=== PATIENT | male | born 1960 | race Caucasian/White ===

== ENCOUNTER 2019-05-28 12:00 | Outpatient (CLI) | payer OTHER, SELFPAY ==
--- NOTE | 2019-05-28 | ECHO_ITS ---
Patient Info Name: Elton Garcia Age: 59 years : 1960 Gender: Male Ht: 70 in Wt: 165 lbs BSA: 1.93 m2 HR: 81 bpm BP: 123 / 86 mmHg Technical Quality: Poor Exam Date: 05/28/2019 12:49 PM Exam Location: [facility] Pulmonary Patient Status: Outpatient Admit Date: 05/28/2019 Staff Ordering Physician: JoseCorazon APRN Eyeglass Lens Cutter: Ct [place] RDCS Attending Provider: BabatundeCorazon APRN Exam Type: CA echo doppler color flow Study Info Indications I27.2 - Other secondary pulmonary hypertension Complete two-dimensional, color flow and Doppler transthoracic echocardiogram is performed. Reason for Poor Study: poor echocardiographic windows Summary 1. Left ventricular chamber dimension is normal. 2. Left ventricular systolic function is normal, estimated at 60-65%. 3. The left ventricular diastolic function is grade II diastolic dysfunction. 4. Tissue doppler is not performed. 5. There is mild aortic valve sclerosis. 6. RVSP is 35 mmHg which suggests normal pulmonary pressure. 7. The aortic root size at the sinus of Valsalva is borderline dilated at 4.0 cm. 8. Dilated inferior vena cava with >50% collapse upon inspiration consistent with elevated right atrial pressure, 10 mmHg. Left Ventricle Tissue doppler is not performed. Left ventricular chamber dimension is normal. Left ventricular systolic function is normal, estimated at 60-65%. The left ventricular diastolic function is grade II diastolic dysfunction. Right Ventricle Right ventricular chamber dimension is normal. Right ventricular systolic function is normal. Left Atria Left atrial chamber dimension is normal. Right Atria Right atrial chamber dimension is normal. Aortic Valve The aortic valve is trileaflet. There is mild aortic valve sclerosis. There is no aortic valve stenosis. There is no aortic valve regurgitation. Pulmonic Valve There is no pulmonic regurgitation. Mitral Valve There is no mitral valve stenosis. There is no mitral valve regurgitation. Tricuspid Valve RVSP is 35 mmHg which suggests normal pulmonary pressure. There is no tricuspid valve regurgitation. Pericardium/Pleural There is no pericardial effusion. Inferior Vena Cava Dilated inferior vena cava with >50% collapse upon inspiration consistent with elevated right atrial pressure, 10 mmHg. Aorta The aortic root size at the sinus of Valsalva is borderline dilated at 4.0 cm. Tricuspid Valve Name Value Normal Estimated PAP/RSVP RA Pressure 10 mmHg <=5 Report Signatures
== END 2019-05-28 12:01 | disposition home or self-care (01) ==
PROVIDERS: Visit Provider Nurse Practitioner Gerontology
DX: I27.20 Pulmonary hypertension, unspecified (principal)
CPT/HCPCS: 93306

== ENCOUNTER 2024-07-07 08:56 | Inpatient (IN) | payer OTHER, SELFPAY ==
[2024-07-07] VITALS (21 sets, daily range): BP systolic 100–146; BP diastolic 62–85; PULSE 87–130; RESP 13–21; TEMP 36.6–39.4; O2SAT 86–100; BMI 28.8
--- NOTE | ~2024-07-07 | CT_ITS ---
EXAMINATION: CTA chest PE abdomen pel DATE: 07/07/2024 10:19 INDICATION: Hypoxia, tachycardia and cough TECHNIQUE: Computed tomography (CT) pulmonary angiogram of the chest was performed with 100 mL Omnipa que-350 intravenous contrast. Additional 3D reconstructions utilizing coronal maximum intensity proje ction (MIP) were performed. CT of the abdomen and pelvis was performed with intravenous contrast util izing the same contrast bolus following a short delay. Automated exposure control and iterative recon struction technique were employed. The dose-length product was 1739.53 mGy-cm. COMPARISON: 04/25/2024 FINDINGS: Chest: No pulmonary embolism. Sensitivity decreased in some of the smaller subsegmental pulmonary arteries d ue to scattered respiratory motion most prominent at the lung bases. Moderate emphysema. There is a r egion of focal consolidation and surrounding septal line thickening in the posterior left lower lobe which is new since the prior study consistent with pneumonia. No pleural effusion. Heart size is norm al. Atherosclerotic coronary artery calcific location. No pericardial effusion. Thoracic aorta is nor mal in caliber with no dissection. No pathologically enlarged thoracic lymphadenopathy. Moderate-siz ed sliding-type hiatal hernia. Mild bilateral gynecomastia. Moderate thoracic spondylosis with multip le old mild compression fractures. There are also old healed bilateral rib fractures. Abdomen/pelvis: There are few hepatic cysts the largest measuring 2.0 cm. Small calcified gallstone at the dependent fundus of the otherwise normal gallbladder. Spleen, pancreas, bilateral adrenal glands and kidneys ar e normal. The appendix is not visualizedand may be surgically absent. No pericecal inflammatory stran ding to suggest acute appendicitis.. No abnormal bowel wall thickening or obstruction. Again seen is mild diffuse bladder wall thickening which could be related chronic outlet obstruction from the mildl y enlarged prostate which measures 4.2 x 3.5 cm. No free intraperitoneal gas or fluid. No pathologica lly enlarged abdominal or pelvic lymphadenopathy. Severe lower lumbar spondylosis. IMPRESSION: 1. No evident pulmonary embolism. Sensitivity decreased in some of the smaller subsegmental pulmonary arteries due to motion artifact. 2. Moderate emphysema with left lower lobe pneumonia. 3. Moderate-sized sliding-type hiatal hernia. 4. Unchanged mild diffuse bladder wall thickening which may relate to chronic outlet obstruction. Reviewed, dictated and finalized at location A. IMPRESSION: 1. No evident pulmonary embolism. Sensitivity decreased in some of the smaller subsegmental pulmonary arteries due to motion artifact. 2. Moderate emphysema with left lower lobe pneumonia. 3. Moderate-sized sliding-type hiatal hernia. 4. Unchanged mild diffuse bladder wall thickening which may relate to chronic o utlet obstruction.
[2024-07-07] MEDS: SODIUM CHLORIDE 0.9% IV 1,000 ML 999 ML IV CONT ×2 (09:20→12:01)
[2024-07-07 09:22] LABS: Basophils Absolute Auto 0.1 K/mm3 (0.0-0.1); Basophils Percent Auto 0.6 % (0.2-1.2); Eosinophils Absolute Auto 0.1 K/mm3 (0-0.3); Eosinophils Percent Auto 0.6 % (0-4.4); Hematocrit 40.6 % (42.0-52.0); Hemoglobin 14.1 g/dL (14.0-18.0); Immature Granulocyte Absolute 0.04 K/mm3 (0.00-0.031); Immature Granulocyte Percent A 0.3 % (0-0.5); Lymphocytes Absolute Auto 0.96 K/mm3 (0.9-3.2); Lymphocytes Percent Auto 7.8 % (18.3-44.2); Mean Corpuscular HGB Conc 34.7 g/dl (32-36); Mean Corpuscular Hemoglobin 30.1 pg (26-34); Mean Corpuscular Volume 86.6 fl (80-100); Mean Platelet Volume 8.9 fl (7.4-10.4); Monocytes Absolute Auto 0.9 K/mm3 (0.1-0.6); Monocytes Percent Auto 7.6 % (2.6-8.5); Neutrophils Absolute Auto 10.3 K/mm3 (1.3-6.7); Neutrophils Percent Auto 83.1 % (45.5-73.1); Platelet Count Result 245 k/mm3 (150-375); Red Blood Count 4.69 M/mm3 (4.6-6.20); Red Cell Distribution Width 14.1 % (11.5-14.5); White Blood Count 12.3 K/mm3 (4.5-10.0)
[2024-07-07 09:29] LABS: Alanine Aminotransferase 28 U/L (6-50); Albumin Level 4.5 g/dL (3.5-5.1); Alkaline Phosphatase 117 U/L (38-126); Anion Gap 10 mmol/L (4-12); Aspartate Amino Transferase 33 U/L (17-59); Bilirubin,Total 1.2 mg/dL (0.2-1.3); Blood Urea Nitrogen 10 mg/dL (9-20); Calcium 9.2 mg/dL (8.4-10.2); Carbon Dioxide 26 mmol/L (22-30); Chloride 100 mmol/L (98-107); Estimated CRCL calculation 68 ml/min; Estimated Glomerular Filt Rate > 60; Glucose 111 mg/dL (65-110); Lipase 108 U/L (23-300); Potassium 4.9 mmol/L (3.4-5.0); Sodium 136 mmol/L (137-145)
[2024-07-07 09:31] LABS: Lactic Acid Reflex 1.7 mmol/L (0.7-2.0)
--- OUTSIDE RECORDS SUMMARY | 2024-07-07 09:38 | XMS_ITS | Clinical Summary ---
Author Organization [facility] Address [address] [place] [address] Phone Care Team Providers Care Eeler Name Role Phone Conner Andrews APRN Primary Care Provider [phone] Allergies Active Allergy Reactions Criticality Noted Date Comments Other Runny Nose 08/22/2016 SEASONAL ALLERGIES Medications famotidine (PEPCID) 20 MG Tablet nightly. Active traZODone (DESYREL) 50 MG Tablet Take 50 mg by mouth nightly. Active Naproxen-Esomep razole (VIMOVO) 500-20 MG Tablet Delayed Response Active thiamine (VITAMIN B1) 100 MG Tablet Take 100 mg by mouth daily. Active folic acid (FOLVITE) 1 MG Tablet Take 1 mg by mouth daily. Active bisacodyl EC (DULCOLAX) 5 MG Tablet Delayed Response Use as directed by the office for Colonoscopy prep. 6 Tab 0 6 Active Meloxicam 15 MG Tablet Take 15 mg by mouth daily. Active baclofen (LIORESAL) 10 MG Tablet Take 10 mg by mouth nightly. Active DULoxetine (CYMBALTA) [address] Particles Take 60 mg by mouth as needed. Active RaNITidine HCl (ZANTAC PO) Take 150 mg by mouth daily. Active Cetirizine HCl 10 MG Capsule Take 1 Tab by mouth daily. Active [place]-3 Fatty Acids (OMEGA-3 FISH OIL) 1000 MG Capsule Take by mouth. Acti ve oxymetazoline (AFRIN NASAL SPRAY) 0.05 % SolutionIndicat ions:Nasal Congestion,USES ONCE OR TWICE A DAY TO RIGHT NOSTRIL 2 Sprays by Nasal route as needed. Indications: Stuffy Nose, USES ONCE OR TWICE A DAY TO RIGHT NOSTRIL Active Active Problems No known active problems Family History Medical History Relation Name Comments Heart Disease Brother Diabetes Father Heart Attack Father Heart Surgery Father 7 vessel bypas s Hypertension Father Diabetes Mother Heart Disease Mother Rheumatoid Arthritis Mother Relation Name Status Comments Brother Father Mother Social History Tobacco Use Types Packs/Day Years Used Date Smoking Tobacco: Every Day Cigarettes 1 42 Smokeless Tobacco: Never Tobacco Cessation:Ready to Q uit: No; Counseling Given: Yes Alcohol Use Standard Drinks/Week Comments Yes 6 (1 standard drink = 0.6 oz pure alcohol) socially - binge drinker 12 pack a week Sex and Gender Information Value Date Recorded Sex Assigned at Not on file Legal Sex Male 11:31 PM CDT Gender Identity Not on file Sexual Orientation Not on file 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 Not on file Not on file Not on file Last Filed Vital Signs Vital Sign Reading Time Taken Comments Blood Pressure 131/97 10/28/2016 11:12 AM CDT Pulse 79 10/28/2016 11:12 AM CDT Temperature 36 C (96.8 F) 10/28/2016 11:12 AM CDT Respiratory Rate 12 10/28/2016 11:12 AM CDT Oxygen Saturation 100% 10/28/2016 11:12 AM CDT Inhaled Oxygen Concentration - - Weight 77.1 kg (170 lb) 10/28/2016 9:03 AM CDT Height 177.8 cm (5' 10 ) 10/28/2016 9:03 AM CDT Body Mass Index 24.39 10/28/2016 9:03 AM CDT Plan of Treatment Health Maintenance Due Date Last Done Comments Hepatitis C Virus (HCV) Screening 1960 TdaP Immunization 1960 Cologuard 2011 Immunochemical Fecal Occult Blood 2011 Pneumococcal Immunization (5 0+ years) (1 of 1 - PCV) 2011 Zoster Immunization (1 of 2) 2011 Colonoscopy 02/26/2017 08/26/2016, 12/27/2015, 12/21/2014 Colorectal Cancer Screening 02/26/2017 Influenza Immunization (#1) 2023 SARS-COV-2 Immunization (2023-25 season) 2023 Respiratory Syncytial Virus (RSV) Immunization (Adult) (1 - 1-dose 75+ series) 02/12/2036 08/26/2016, 12/27/2015, 12/21/2014 Hepatitis B Immunization Aged Out No longer eligible based on patient's age to complete this topic Meningococcal Immunization (ACWY) Aged Out No longer eligible b ased on patient's age to complete this topic Rotavirus Immunization Aged Out No lo nger eligible based on patient's age to complete this topic Procedures Procedure Name Priority Date/Time Associated Diagnosis Comments COLONOSCOPY Routine 12/21/2014 from Last 3 Months or Most Recently Relevant to Health Maintenance Results * HM COLONOSCOPY (12/21/2014) Job Cordero MD PROCEDURE/MINOR SURGICAL ORDER CHINTAN Final Result from Last 3 Months or Most Recently Relevant to Health Maintenance Insurance [address] [place] [address] MEDICAID [facility] Care Teams Eeler Relationship Specialty Start Date End Date Conner Andrews APRN [address] [place] [address] PCP - General Advanced Practice Nurse 08/14/16
--- OUTSIDE RECORDS SUMMARY | 2024-07-07 09:38 | XMS_ITS | Referral Summary ---
Author Organization [facility] Address [address] [place] [address] Care Team Providers Care Mri Technologist Name Role Phone Melinda Hyde NP Primary Care Provide r Rodriguez Eid MD Unavailable [phone] Allergies No known active allergies Medications budesonide-form oteroL (SYMBICORT) 160-4.5 mcg/actuation inhaler Inhale 2 puffs 2 (two) times a day Rinse mouth with water after use. Do not swallow. Active folic acid (FOLVITE) 1 mg tablet Take 1 tablet (1 mg total) by mouth daily Active DULoxetine DR (CYMBALTA) 60 mg capsule Take 1 capsule (60 mg total) by mouth daily Active magnesium oxide (MAG-OX) 400 mg (241.3 mg elemental magnesium) tabletIndicatio ns:hypomagnesem ia Take 1 tablet (400 mg total) by mouth daily Active gabapentin (NEURONTIN) 300 mg capsule Take 1 capsule (300 mg total) by mouth 3 (three) times a day Active omeprazole (PriLOSEC) 20 mg capsule Take 1 capsule (20 mg total) by mouth daily Active multivitamin with minerals tablet Take 1 tablet by mouth daily Active meclizine (ANTIVERT) 12.5 mg tablet Take 1 tablet (12.5 mg total) by mouth 3 (three) times a day as needed for dizziness Active amLODIPine (NORVASC) 10 mg tablet Take 1 tablet (10 mg total) by mouth daily 30 tablet 11 3 Active Active Problems Problem Noted Date Diagnosed Date Impacted cerumen of both ears 10/15/2022 Assessment & Plan (10/15/2022 12:37 AM CDT): Carbamide peroxide Alcohol withdrawal seizure with complication 01/2023 Assessment & Plan (10/15/2022 12:36 AM CDT): Telemetry Neurologic checks [facility] protocol Neurology consultation Patient refers last drink having occurred proximally 3-4 days ago, and excessive alcohol consumption--- degree of which has great variability as referred Liver cyst 10/30/2021 Benign prostatic hyperplasia without lower urinary tract symptoms 10/30/2021 Other emphysema 10/30/2021 Hiatal hernia 10/30/2021 Cervical spondylosis 10/30/2021 Moderate malnutrition 10/23/2021 Wernicke encephalopathy 10/23/2021 Dizziness 10/21/2021 Weight loss, unintentional 10/21/[address] scan, esophagus 10/21/2021 Hepatic steatosis 10/21/2021 Hyponatremia 10/21/2021 Alcohol abuse 10/21/2021 Assessment & Plan (10/15/2022 12:37 AM CDT): CIWA protocol Thrombocytopenia 10/21/2021 Tobacco dependence 10/21/2021 Social History Tobacco Use Types Packs/Day Years Used Date Smoking Tobacco: Every Day Cigarettes Social Connection and Isolation Panel [NHANES] A nswer Date Recorded In a typical week, how many times do you talk on the phone with family, friends, or neighbors? Twice a week 10/15/2022 How often do you get together with friends or re latives? Once a week 10/15/2022 How often do you attend adventism or buddhism serv ices? Never 10/15/2022 Do you belong to any clubs o r organizations such as adventism groups, unions, fraternal or athletic groups, or school groups? No 10/15/2022 How often do you attend meet ings of the clubs or organizations you belong to? Never 10/15/2022 Are you , , di vorced, , never , or living with a partner? Never 10/15/2022 AUDIT-C Answer Date Recorded Q1: How often do you have a drink containing alcohol? 4 or more times a week 10/22/2021 Q2: How many drinks containi ng alcohol do you have on a typical day when you are drinking? 3 or 4 Frequency of Binge Drinking Not on file 10/05 Overall Financial Resource Strain (CARDIA) Answe r Date Recorded How hard is it for you to pa y for the very basics like food, housing, medical care, and heating? Not very hard 10/15/2022 Hunger Vital Sign Answer Date Recorded Within the past 12 months, y ou worried that your food would run out before you got the money to buy more. Never true 10/16/19 23 Within the past 12 months, t he food you bought just didn't last and you didn't have money to get more. Never true 10/15/2022 PRAPARE - Transportation Answer Date Re corded In the past 12 months, has l ack of transportation kept you from medical appointments or from getting medications? No 10/05 In the past 12 months, has l ack of transportation kept you from meetings, work, or from getting things needed for daily living? No 10/15/2022 Housing Stability Vital Sign Answer Doyle e Recorded In the last 12 months, was t here a time when you were not able to pay the mortgage or rent on time? No 10/15/2022 In the last 12 months, how many places have you lived? 1 10/15/2022 In the last 12 months, was t here a time when you did not have a steady place to sleep or slept in a fpc (including now)? 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 Gender Identity Not on file Sexual Orientation Not on file Last Filed Vital Signs Vital Sign Reading Time Taken Comments Blood Pressure 138/80 10/19/2022 4:00 PM CDT Pulse 92 10/19/2022 4:00 PM CDT Temperature 36.4 C (97.5 F) 10/19/2022 4:00 PM CDT Respiratory Rate 20 10/19/2022 4:00 PM CDT Oxygen Saturation 93% 10/19/2022 4:00 PM CDT Inhaled Oxygen Concentration - - Weight 59.2 kg (130 lb 9.6 oz) 10/16/2022 5:00 A M CDT Height 177.8 cm (5' 10 ) 10/14/2022 11:50 PM CDT Body Mass Index 18.74 10/14/2022 11:50 PM CDT Plan of Treatment Not on file Insurance [address] [place] [phone] [facility] [address] [place] [phone] [facility] Advance Directives For more information, please contact: [phone] Documents on File Type Date Recorded Patient Pattern Developer Expl anation ADVANCE DIRECTIVE 01/01/2016 12:00 AM BILLY Ry OF D[employer]EL CRANE OPERATOR FINANCIAL/MEDICAL * Full Code (Latest Code Status on File) Date Activated Date Inactivated Comments 10/15/2022 12:54 AM 10/19/2022 9:35 PM * Full Code Date Activated Date Inactivated Comments 10/21/2021 10:52 PM 10/23/2021 10:55 PM Care Teams Mri Technologist Relationship Specialty Start Date End Date Melinda Hyde NP PCP - General 08/06/20 Rodriguez Eid MD [address] [address] Referring Physician Emergency Medicine 10/23/21
--- OUTSIDE RECORDS SUMMARY | 2024-07-07 09:38 | XMS_ITS | Clinical Summary ---
Author Organization [facility] Address [address] [place] [address] Care Team Providers Care Civil Rights Attorney Name Role Phone Melinda Hyde [employer]-ELECTRICAL [employer]OLS ENGINEER Primary Care Provider Source Comments [facility],non-owned Affiliates and Associated Physician Practices is amultiple site organization consisting of ambulatory clinics and hospital sitesin [place], [place], [place] and [place]. This disclosure is being madepursuant to the Care Everywhere program and may not contain all information available regarding this patient. Last updated 17.[facility] [place] Allergies Active Allergy Reactions Criticality Noted Date Comments Nicotine Anaphylaxis,Itching, Othe r High 06/09/2017 Patches only. Able to take pills and use gum Medications * Be aware that medications may not be up to date on this document. Alwaysverify current medications with the patient. Medication Sig Dispensed Refills Start Date End Date Status omeprazole (PRILOSEC) 40 MG capsule Take 40 mg by mouth BID. 08/30/2016 Active folic acid (FOLVITE) 1 MG tablet Take 1 mg by mouth DAILY. 01/31/2016 Active baclofen (LIORESAL) 10 MG tablet Take 10 mg by mouth BID. 01/31/2016 Active Thiamine HCl 100 MG Take 100 mg by mouth DAILY. 01/31/2016 Active DULoxetine (CYMBALTA) 60 MG capsule Take 60 mg by mouth DAILY. 06/24/2017 Active cetirizine (ZYRTEC ALLERGY) 10 MG gel capsule Take 10 mg by mouth DAILY. 07/07/2017 Active albuterol HFA (RELION VENTOLIN) 108 (90 BASE) MCG/ACT inhaler Inhale 2 puffs by mouth every 6 hours as needed Active SYMBICORT 160-4.5 MCG/ACT inhaler 2 times daily 05/14/2019 Active gabapentin (NEURONTIN) 300 MG capsule 12/21/2019 Active fluticasone propionate (FLONASE) 50 MCG/ACT nasal spray 11/22/2019 Active traZODone (DESYREL) 100 MG tablet 12/22/2019 Active omeprazole (PRILOSEC) 20 MG capsule 11/23/2019 Active loratadine (CLARITIN) 10 MG tablet 11/23/2019 Active traMADol (ULTRAM) 50 MG tablet 04/27/2020 Active Active Problems Problem Noted Date Diagnosed Date Alcoholism 01/26/2020 Asthma 01/26/2020 Tobacco use 01/26/2020 Acromioclavicular joint sepa ration, type 3, left, subsequent encounter 06/02/2018 Rotator cuff tear arthropathy, left 06/02/2018 Multiple benign nevi of uppe r and lower extremities, and trunk 12/31/2017 History of basal cell carcinoma (BCC) of skin [place] 12/31/2017 Dermatofibroma of thigh, left 12/31/2017 Scar conditions and fibrosis of skin 05/06/2017 Lentigines 05/06/2017 Neoplasm of uncertain behavior of skin 8 Hypertrophy of nasal turbinates 11/19/2016 Deviated nasal septum 11/19/2016 Localized swelling, mass and lump, left upper li mb 02/01/2016 Forearm mass, left 02/01/2016 Epidermal cyst 01/31/2016 Resolved Problems Problem Noted Date Diagnosed Date Resolved Date Other melanin hyperpigmentation 05/06/2017 12/31/2017 Family History Medical History Relation Name Comments Arthritis - Rheumatoid Brother 1 Depression Brother 2 Broken Bones Brother 3 Glaucoma Brother 4 Heart Disease Brother 5 Hypertension Brother 6 High Cholesterol Brother 7 Osteoporosis Brother 8 Phlebitis/Blood Clot Brother 9 Arthritis - Rheumatoid Father Asthma Father Broken Bones Father CVA Father Depression Father Diabetes Father Glaucoma Father Heart Disease Father High Cholesterol Father Hypertension Father Kidney Disease Father Liver Disease Father Osteoporosis Father Peptic Ulcer Disease Father Phlebitis/Blood Clot Father Seizures Father Broken Bones Maternal Aunt Arthritis - Rheumatoid Mother Asthma Mother Broken Bones Mother CVA Mother Depression Mother Diabetes Mother Glaucoma Mother Hearing Loss Mother Heart Disease Mother High Cholesterol Mother Hypertension Mother Kidney Disease Mother Liver Disease Mother Osteoporosis Mother Peptic Ulcer Disease Mother Phlebitis/Blood Clot Mother Seizures Mother Arthritis - Rheumatoid Sister 1 Broken Bones Sister 2 Depression Sister 3 Glaucoma Sister 4 Osteoporosis Sister 5 Relation Name Status Comments Brother 1 Brother 2 Brother 3 Brother 4 Brother 5 Brother 6 Brother 7 Brother 8 Brother 9 Father Maternal Aunt Mother Sister 1 Sister 2 Sister 3 Sister 4 Sister 5 Social History Tobacco Use Types Packs/Day Years Used Date Smoking Tobacco: Every Day Cigarettes Smokeless Tobacco: Current Alcohol Use Standard Drinks/Week Comments Yes 4 (1 standard drink = 0.6 oz pur e alcohol) 96 oz beer daily AUDIT-C Answer Date Recorded Q1: How often do you have a drink containing alcohol? 4 or more times a week 06/19/2021 Q2: How many drinks containi ng alcohol do you have on a typical day when you are drinking? 3 or 4 Q3: How often do you have si x or more drinks on one occasion? Daily or almost daily 06/19/2021 Sex and Gender Information Value Date Recorded Sex Assigned at Not on file Gender Identity Not on file Sexual Orientation Not on file Last Filed Vital Signs Vital Sign Reading Time Taken Comments Blood Pressure 135/91 06/19/2021 6:40 PM CDT Pulse 88 06/19/2021 6:40 PM CDT Temperature 36.3 C (97.4 F) 06/19/2021 4:17 PM CDT Respiratory Rate 16 06/19/2021 6:40 PM CDT Oxygen Saturation 99% 06/19/2021 6:40 PM CDT Inhaled Oxygen Concentration - - Weight 74.8 kg (165 lb) 06/19/2021 4:26 PM CDT Height 177.8 cm (5' 10 ) 06/19/2021 4:26 PM CDT Body Mass Index 23.68 06/19/2021 4:26 PM CDT Plan of Treatment Health Maintenance Due Date Last Done Comments COLOGUARD (AGES 45-75) - COL ON CA SCREENING 1960 COLON MONITORING 1960 COLONOSCOPY - COLON CA SCREENING 1961 CT COLONOGRAPHY - COLON CA SCREENING 1960 Colorectal Cancer Screening 1960 FIT - COLON CA SCREENING 1960 FLEX SIG - COLON CA SCREENING 1960 LIPID TESTING 1960 DTAP/TDAP/TD VACCINES (1 - Tdap) 02/12/1980 PNEUMOCOCCAL VACCINE 50+ (1 of 2 - PCV) 02/12/1980 PNEUMOCOCCAL VACCINE (1 of 2 - PCV) 02/12/1980 ZOSTER VACCINE (1 of 2) 2011 Respiratory Syncytial Virus (RSV) Vaccine Pt: or over 60 yrs (1 - Risk 60-74 years 1-dose series) 2021 COVID-19 VACCINE (4 - 2023-2 5 season) 2023 02/27/2021, 07/05/2020, 06/14/2020 INFLUENZA VACCINE (#1) 2023 , 02/03/2020 DEPRESSION SCREENING 04/07/2024 HEPATITIS C SCREENING Completed 06/19/2021 HIV SCREENING Completed 06/19/2021 HEPATITIS B VACCINE Aged Out No longe r eligible based on patient's age to complete this topic HIB VACCINE Aged Out No longer eligi ble based on patient's age to complete this topic HPV VACCINE Aged Out No longer eligi ble based on patient's age to complete this topic MENINGOCOCCAL (Group B) VACCINE SHARED DECISION-MAKING Aged Out No longer eligible based on patient's age to complete this topic MENINGOCOCCAL GROUPS A/C/Y/W VACCINE Aged Out No longer eligible b ased on patient's age to complete this topic Procedures Procedure Name Priority Date/Time Associated Diagnosis Comments HIV-1 HIV-2 ANTIBODY + HIV P24 AG PANEL STAT 06/19/2021 6:19 PM CDT HEPATITIS C AB SCREEN RFLX NAAT QUANT STAT 06/19/2021 6:18 PM CDT from Last 3 Months or Most Recently Relevant to Health Maintenance Results * HIV-1 HIV-2 ANTIBODY + HIV P24 AG PANEL (06/19/2021 6:19 PM CDT) HIV Antigen/Antibod y 1 & 2 Non-reacti ve Non-react ericka 06/19/2021 7:46 PM CDT [facility] Comment:No Laboratory eviden ce of HIV infection. Blood BLOOD SPECIMEN / Unknown Venipuncture / Unknown 06/19/2021 6:19 PM CDT 06/19/2021 6:28 PM CDT Silas Medina MD LAB - CHEMISTRY [place] ZAPIEN Performing Organization Address [facility]/ZIP Co de Phone Number [address] [address], [facility] [phone] * HEPATITIS C AB SCREEN RFLX NAAT QUANT (06/19/2021 6:18 PM CDT) Hepatitis C Antibody Non-react ericka Non-reac tive 06/19/2021 7:47 PM CDT [facility] Comment:Hepatitis C Antibody screen indicates no serologic evidence of past or current infection with Hepatitis C Virus. Patients with unexplained liver disease who are immunocompromised or suspected of having acute Hepatitis C infection may benefit from Nucleic Acid Test (CRISTA) for Hepatitis C Viral RNA to confirm Hepatitis C status. Blood BLOOD SPECIMEN / Unknown Venipuncture / Unknown 06/19/2021 6:18 PM CDT 06/19/2021 6:28 PM CDT Silas Medina MD LAB - CHEMISTRY [place]HA ZAPIEN Performing Organization Address [facility] Co de Phone Number [address] [address], [facility] [phone] from Last 3 Months or Most Recently Relevant to Health Maintenance Care Teams Civil Rights Attorney Relationship Specialty Start Date End Date Melinda Hyde, [employer] ASSEMBLER-ELECTRICAL CONTROLS ENGINEER [address] [place] [id number] PCP - General 01/26/20
--- OUTSIDE RECORDS SUMMARY | 2024-07-07 09:38 | XMS_ITS | Clinical Summary ---
Author Organization [facility] Address [address] [place] [address] Care Team Providers Care Frame Feeder Name Role Phone Craig Thrasher MD Unavailable Rodriguez Eid MD Primary Care Provider [phone] Allergies Active Allergy Reactions Criticality Noted Date Comments Nicotine Hives,Nausea Only 06/09/2017 Patches only. Able to take pills and use gum Medications fluticasone propionate 50 MCG/ACT nasal spray 1 spray by Each Nostril route daily. 8 Active vitamin B-1 100 MG tablet Take 1 tablet by mouth daily. 8 Active baclofen 10 MG tablet Take 1 tablet (10 mg total) by mouth 2 (two) times daily. 8 Active duloxetine 60 MG capsule Take 1 capsule (60 mg total) by mouth daily. 8 Active folic acid 1 MG tablet Take 1 tablet (1 mg total) by mouth daily. 8 Active ranitidine 300 MG tablet Take 1 tablet (300 mg total) by mouth 2 (two) times daily. 8 Active sucralfate 1 G tablet Take 1 tablet (1 g total) by mouth 4 (four) times daily. 8 Active trazodone 50 MG tablet Take 2 tablets (100 mg total) by mouth nightly as needed for Sleep. 8 Active TiZANidine HCl 2 MG Cap Take 0.5 tablets by mouth 2 (two) times daily. NO DOSE GIVEN 03-03-18. 8 Active loratadine 10 MG tablet Take 1 tablet (10 mg total) by mouth daily. 8 Active Multiple Vitamins-Minerals (ONE DAILY MULTIVITAMIN MEN) Tab Take 1 tablet by mouth daily. 8 Active albuterol sulfate HFA (VENTOLIN HFA) 108 (90 Base) MCG/ACT inhaler Inhale 2 puffs into the lungs every 6 (six) hours as needed for Wheezing. 8 Active acetaminophen-cod eine 300-30 MG tablet Take 1 tablet by mouth every 8 (eight) hours as needed for Pain. 9 Active ibuprofen 800 MG tablet Take 1 tablet (800 mg total) by mouth every 8 (eight) hours as needed for Pain. 9 Active meclizine 12.5 MG tablet Take 12.5 mg by mouth. Active gabapentin 300 MG capsule Take 1 capsule (300 mg total) by mouth 3 (three) times daily. 90 capsule 1 Active Active Problems Problem Noted Date Diagnosed Date Rotator cuff tear arthropathy, left 06/02/2018 Acromioclavicular joint sepa ration, type 3, left, subsequent encounter 06/02/2018 Cervical radiculopathy 06/11/2017 Tobacco use [facility]) Precordial chest pain Resolved Problems Problem Noted Date Diagnosed Date Resolved Date Chest pain 05/12/2018 Immunizations Name Administration Dates Next Due PFIZER COVID-19 (ORIGINAL FO RMULATION, PURPLE CAP) mRNA, LNP-S, PF, 30 MCG/0.3 ML DOSE 07/05/2020,06/14/2020 Family History Medical History Relation Comments Colon Cancer Brother 1 Heart Disease Brother 1 MS Brother 1 automobile accident Brother 2 Colon Cancer Father Diabetes Father Heart Disease Father Kidney Disease Father MS Father Prostate Cancer Father cva Father Arthritis Mother Diabetes Mother Heart Disease Mother Kidney Disease Mother MS Mother cva Mother MS Sister Relation Status Comments Brother 1 Alive Brother 2 (Age 43) Father (Age 89) Mother (Age 79) Sister Alive Social History Tobacco Use Types Packs/Day Years Used Date Smoking Tobacco: Every Day Cigarettes 1 40 Smokeless Tobacco: Former Chew Quit: 1989 Tobacco Cessation:Ready to Q uit: No Alcohol Use Standard Drinks/Week Comments Yes 20 (1 standard drink = 0.6 oz pu re alcohol) 12+ beers weekly or more Sex and Gender Information Value Date Recorded Sex Assigned at Not on file Legal Sex Male 7:51 PM CDT Gender Identity Not on file Sexual Orientation Not on file Occupation Industry Job Start Date Job End Date Not on file Not on file Not on file Not on file Last Filed Vital Signs Vital Sign Reading Time Taken Comments Blood Pressure 158/98 09/12/2022 2:42 PM CDT Pulse 89 09/12/2022 2:42 PM CDT Temperature 36.7 C (98.1 F) 09/12/2022 2:42 PM CDT Respiratory Rate 18 09/12/2022 2:42 PM CDT Oxygen Saturation 100% 09/12/2022 2:42 PM CDT Inhaled Oxygen Concentration - - Weight 60.2 kg (132 lb 11.5 oz) 09/12/2022 2:42 PM CDT Height 177.8 cm (5' 10 ) 09/12/2022 2:42 PM CDT Body Mass Index 19.04 09/12/2022 2:42 PM CDT Plan of Treatment Health Maintenance Due Date Last Done Comments Annual Physical 02/12/1964 Zoster Vaccines (1 of 2) 2011 Pneumococcal Vaccine: Pediatrics (0 to 5 Years) and At-Risk Patients (6 to 64 Years) (2 of 2 - PCV) 12/29/2016 12/30/2015 COVID-19 Vaccine (3 - 2023-2 5 season) 2023 07/05/2020, 06/14/2020 Influenza Adult (#1) 2024 02/24/2017, 12/30/2015 PHQ-2 (Physician [place]) 04/07/2024 DTaP, Tdap and Td Vaccines ( 2 - Td or Tdap) 02/24/2027 02/24/2017, 06/21/2013 Colorectal Cancer Screening Colonoscopy (10 Years) 11/26/2028 11/26/2018 RSV Immunization or 60+ Years (1 - 1-dose 75+ series) 02/12/2036 Hepatitis C Completed 06/19/2021 Meningococcal B Vaccine Aged Out No l onger eligible based on patient's age to complete this topic Meningococcal Vaccine Aged Out No daisy rubina eligible based on patient's age to complete this topic RSV Immunizations Under 20 Months Aged Out No longer eligible b ased on patient's age to complete this topic Procedures Procedure Name Priority Date/Time Associated Diagnosis Comments COLONOSCOPY Routine 11/26/2018 8:27 AM CDT from Last 3 Months or Most Recently Relevant to Health Maintenance Insurance [employer] Care Teams Frame Feeder Relationship Specialty Start Date End Date Rodriguez Eid MD [address] [place] [address] PCP - General FAMILY PRACTICE 04/27/20 Craig Thrasher MD [facility] [address] [place] [address] [place] [employer] INTERVENTIONAL CARDIOLOGY 02/09/18
--- OUTSIDE RECORDS SUMMARY | 2024-07-07 09:38 | XMS_ITS | Clinical Summary ---
Author Organization [facility] Address [address] [place] [address] Care Team Providers Care Bulk Plant Supervisor Name Role Phone Melinda Hyde NP Primary Care Provide r Rodriguez Eid MD Unavailable [phone] Allergies No known active allergies Medications [...] AM CDT): Telemetry Neurologic checks Fall precaution [facility] protocol Neurology consultation Patient refers [...] CIWA protocol Thrombocytopenia 10/21/2021 Tobacco dependence 10/21/2021 Medical History Medical History Date Comments Seizure due to alcohol withdrawal (HCC) GERD (gastroesophageal reflux disease) Neuropathy Vertigo Social History Tobacco Use Types Packs/Day Years [...] week 10/15/2022 How often do you attend oriental orthodox or sikh serv ices? Never 10/15/2022 Do you belong to any clubs o r organizations such as oriental orthodox groups, unions, fraternal or athletic groups, or [...] place to sleep or slept in a retirement (including now)? No 10/15/2022 Personal Safety Answer Date Recorded Getting School Help Needed Not on file 10/21 Sex and Gender Information Value Date Recorded Sex Assigned at Not on file Legal Sex Male 1:58 AM [employer] Gender Identity Not on file Sexual Orientation Not on file Obstetrics History Last Filed Vital Signs Vital Sign Reading [...] 10/14/2022 11:50 PM CDT Plan of Treatment Health Maintenance Due Date Last Done Comments Colon Cancer Screening-Colonoscopy 1961 Depression Screening 1961 Hepatitis C Screening 1961 Prostate Cancer Screening-PSA 1961 Hepatitis B Screening 1979 Regular Well Visit/Exam 18-64 1979 Zoster Vaccine (1 of 2) 2011 Pneumococcal vaccine <65 (2 of 2 - PCV) 12/29/2016 12/30/2015 Covid-19 Vaccine (4 - 2023-2 5 season) 2023 02/27/2021, 07/05/2020, 06/14/2020 Influenza Vaccine (Season Ended) 2024 02/28/2021, 02/03/2020, 01/19/2019, Additional history exists DTaP/Tdap/Td Vaccine (2 - Td or Tdap) 02/24/2027 02/24/2017, 06/21/[address] [place] [address] [facility] Advance Directives For more information, please contact: [phone] Documents on File Type Date Recorded Patient Certified Personal Trainer Expl anation ADVANCE DIRECTIVE 01/01/2016 12:00 AM [employer] * Full Code (Latest Code Status on File) Date Activated Date Inactivated Comments 10/15/2022 12:54 AM 10/19/2022 9:35 PM * Full Code Date Activated Date Inactivated Comments 10/21/2021 10:52 PM 10/23/2021 10:55 PM Care Teams Bulk Plant Supervisor Relationship Specialty Start Date End Date Melinda Hyde NP PCP - General 08/06/20 Rodriguez Eid MD [address] [address] Referring Physician Emergency Medicine 10/23/21
--- NOTE | 2024-07-07 09:48 | ED_ITS ---
HPI - General Adult General Chief complaint: Nausea/Vomiting/Diarrhea <Tori Gross PA-C - Last Filed: 07/07/24 13:41> Stated complaint: fever, chills, N/V <Tori Gross PA-C - Last Filed: 07/07/24 13:41> Time Seen by Provider: 07/07/24 08:58 <CRAIG Cisneros Last Filed: 07/07/24 13:41> Source: patient, RN notes reviewed and old records reviewed <CRAIG Cisneros Last Filed: 07/07/24 13:41> Mode of arrival: EMS <CRAIG Cisneros Last Filed: 07/07/24 13:41> Limitations: dementia <CRAIG Cisneros Last Filed: 07/07/24 13:41> History of Present Illness HPI narrative: Patient is a 64-year-old male, with past medical history of Wernicke's encephalopathy, dementia, COPD, who presents the ED via EMS with report of URI sx's/N/V. Patient is a resident of [facility]. Reports he has not been feeling well over the past couple of days. Reports cough, congestion, nausea, vomiting, diarrhea. Develop fevers until today. Was sent to the ED for further evaluation. Was given Tylenol and Zofran by facility prior to transport. Per EMS, there has been COVID positive residents at [facility]. Patient denies significant shortness of breath. Denies pain or swelling in legs. <Tori Gross PA-C - Last Filed: 07/07/24 13:41> Related Data Home medications: Home Medications ?Medication ?Instructions ?Recorded ?Confirmed ?Last Taken ?Type acetaminophen 325 mg capsule 325 mg PO Q6H PRN pain 07/07/24 07/07/24 Unknown History albuterol sulfate 90 mcg/actuation 2 inh inhalation Q4-6H PRN 07/07/24 07/07/24 Unknown History breath activated powder inhaler shortness of breath amlodipine 10 mg tablet 10 mg PO DAILY 07/07/24 07/07/24 Unknown History budesonide-formoterol HFA 160 2 inh inhalation Q12H 07/07/24 07/07/24 Unknown History mcg-4.5 mcg/actuation aerosol inhaler (Breyna) buspirone 10 mg tablet 10 mg PO BID 07/07/24 07/07/24 Unknown History cetirizine 10 mg tablet (All Day 10 mg PO DAILY 07/07/24 07/07/24 Unknown History Allergy (cetirizine)) famotidine 20 mg tablet (Acid 20 mg PO BID 07/07/24 07/07/24 Unknown History Thermostat Machine Tender (famotidine)) ferrous sulfate 325 mg (65 mg 325 mg PO DAILY 07/07/24 07/07/24 Unknown History iron) tablet (Feosol) fluticasone propionate 50 1 spray intranasal DAILY 07/07/24 07/07/24 Unknown History mcg/actuation nasal spray,suspension (Allergy Relief (fluticasone)) folic acid 1 mg tablet 1 mg PO DAILY 07/07/24 07/07/24 Unknown History gabapentin 300 mg capsule 300 mg PO TID 07/07/24 07/07/24 Unknown History magnesium oxide 400 mg PO DAILY 07/07/24 07/07/24 Unknown History meclizine 25 mg tablet 25 mg PO Q8H PRN dizziness 07/07/24 07/07/24 Unknown History memantine 10 mg tablet (Namenda) 10 mg PO BID 07/07/24 07/07/24 Unknown History multivitamin,ll-ybas-Sm-FA-min 1 tablet PO DAILY 07/07/24 07/07/24 Unknown History nicotine 14 mg/24 hr daily 1 patch transdermal DAILY PRN 07/07/24 07/07/24 Unknown History transdermal patch withdrawal symptoms omeprazole 20 mg capsule,delayed 20 mg PO DAILY 07/07/24 07/07/24 Unknown History release propylene glycol 1 %-glycerin 0.3 1 drp EACH EYE BID PRN dry eye(s) 07/07/24 07/07/24 Unknown History % eye drops (Lubricant (propylene glycol-glycerin)) <Tori Gross PA-C - Last Filed: 07/07/24 13:41> Allergies/adverse reactions: Allergies Allergy/AdvReac Type Severity Reaction Status Date / Time No Known Allergies Allergy Verified 07/07/24 09:06 <Tori Gross PA-C - Last Filed: 07/07/24 13:41> Review of Systems 2 Review of Systems: All systems reviewed & are unremarkable except as noted in HPI. <Tori Gross PA-C - Last Filed: 07/07/24 13:41> All systems reviewed & are unremarkable except as noted in HPI and below < Tori Gross PA-C - Last Filed: 07/07/24 13:41> PMFSH Past Medical History Medical History: Medical History (Updated 07/07/24 @ 14:19 by Taisha Garsia APRN) Anxiety GERD (gastroesophageal reflux disease) COPD (chronic obstructive pulmonary disease) <CRAIG Cisneros Last Filed: 07/07/24 13:41> Surgical History Surgical History: Surgical History (Updated 07/07/24 @ 14:19 by Taisha Garsia APRN) History of appendectomy <Tori Gross PA-C - Last Filed: 07/07/24 13:41> Social History Social History: Social History Smoking packs per day: 0.5 Smoking cigarettes per day: 10.0 Years smoked: 42 Smoking pack-years: 21.00 Smoking status: Current some day smoker Tobacco type: cigarettes Do You Feel Safe in your Home?: Yes Lack of Transportation: No Lack of Food: Never True Current Housing: I Have Housing Concerned About Future Housing: No Difficulty Paying Gas/Electric Bills: No Difficulty Paying for Meds: No Currently Unemployed: No Education: High School Diploma/GED Difficulty w/ Childcare or Family Care: No Spiritual care concerns: No <CRAIG Cisneros Last Filed: 07/07/24 13:41> Exam 2 Narrative: GENERAL: Appears older than stated age, well-nourished, non-toxic, in no acute distress. HEAD: Normocephalic, atraumatic. RESPIRATORY: Airway patent, respirations nonlabored. Clear to auscultation bilaterally, no rales, rhonchi, wheezing. CARDIOVASCULAR: Regular rate and rhythm without murmurs, rubs, or gallops. ABDOMINAL: Soft, nontender, nondistended. Normoactive BS. MUSCULOSKELETAL: Moves all extremities. No gross deformities. No peripheral edema. No calf tenderness. SKIN: Warm, dry, normal color. NEURO: Alert, answers all questions, discussing topics that do not fit with conversation. Speech clear. Cranial nerves II-XII grossly intact. No ataxic movements. No appreciable focal deficits. PSYCHIATRIC: Appropriate mood and affect. Normal interaction. <Tori Gross PA-C - Last Filed: 07/07/24 13:41> Course APPLICATION PROJECT LEADER/PA Physician Supervision For this patient encounter, I reviewed the APPLICATION PROJECT LEADER or PA documentation, treatment plan, and medical decision making; and I had [id number] time with this patient. <Yaniv Mcclellan MD - Last Filed: 07/07/24 18:25> Vital Signs Vital signs: Vital Signs Temperature 102.9 F H 07/07/24 09:02 Pulse Rate 121 H 07/07/24 09:02 Respiratory Rate 19 07/07/24 09:02 Blood Pressure 112/76 07/07/24 09:02 Pulse Oximetry 86 L 07/07/24 09:02 Oxygen Delivery Room Air 07/07/24 09:02 Temperature 98 F 07/07/24 13:45 Pulse Rate 87 07/07/24 16:44 Respiratory Rate 16 07/07/24 14:06 Blood Pressure 100/62 07/07/24 13:45 Pulse Oximetry 96 07/07/24 14:06 Oxygen Delivery Nasal Cannula 07/07/24 14:06 Oxygen Flow Rate 2 07/07/24 14:06 <Tori Gross PA-C - Last Filed: 07/07/24 13:41> Vital Signs Temperature 102.9 F H 07/07/24 09:02 Pulse Rate 121 H 07/07/24 09:02 Respiratory Rate 19 07/07/24 09:02 Blood Pressure 112/76 07/07/24 09:02 Pulse Oximetry 86 L 07/07/24 09:02 Oxygen Delivery Room Air 07/07/24 09:02 Temperature 98 F 07/07/24 13:45 Pulse Rate 87 07/07/24 16:44 Respiratory Rate 16 07/07/24 14:06 Blood Pressure 100/62 07/07/24 13:45 Pulse Oximetry 96 07/07/24 14:06 Oxygen Delivery Nasal Cannula 07/07/24 14:06 Oxygen Flow Rate 2 07/07/24 14:06 <Yaniv Mcclellan MD - Last Filed: 07/07/24 18:25> Medical Decision Making MDM Narrative Medical decision making narrative: Patient presented to ED from local [facility] facility with report of fevers, nausea, vomiting, diarrhea, URI symptoms. Patient tachycardic, febrile, hypoxic upon arrival. Sepsis workup was initiated. Patient placed on 2 L nasal cannula. No previous oxygen requirement. CBC with white blood cell count of 12.3. Neutrophil predominance. CMP is unremarkable. Stable electrolytes and kidney function. Lactic acid within normal range at 1.7. Normal LFTs and lipase. UA with 3+ leuks, negative nitrate, does not appear to have refluxed? Viral swabs are negative, though patient has had close exposure at his facility to COVID-19. EKG with sinus tachycardia, no concerning ST changes. Trop undetectable. CTA of chest with abdomen/pelvis was obtained and no evidence of PE. Does show evidence of left lower lobe pneumonia, emphysematous changes. No significant wheezing heard upon my initial exam. Patient meeting sepsis criteria based on initial vital signs and pneumonia. Blood cultures obtained. Rocephin and azithromycin started for pneumonia. Patient will be admitted for further evaluation. Discussed case with Taisha Garsia NP hospitalist, accepted patient for admission. Patient in agreement with plan and admission. <Tori Gross PA-C - Last Filed: 07/07/24 13:41> Medical Records Medical records reviewed: Yes I reviewed the external patient's medical records. <Tori Gross PA-C - Last Filed: 07/07/24 13:41> Vital Signs Vital Signs: Vital Signs Temperature 102.9 F H 07/07/24 09:02 Pulse Rate 121 H 07/07/24 09:02 Respiratory Rate 19 07/07/24 09:02 Blood Pressure 112/76 07/07/24 09:02 Pulse Oximetry 86 L 07/07/24 09:02 Oxygen Delivery Room Air 07/07/24 09:02 Temperature 98 F 07/07/24 13:45 Pulse Rate 87 07/07/24 16:44 Respiratory Rate 16 07/07/24 14:06 Blood Pressure 100/62 07/07/24 13:45 Pulse Oximetry 96 07/07/24 14:06 Oxygen Delivery Nasal Cannula 07/07/24 14:06 Oxygen Flow Rate 2 07/07/24 14:06 <Tori Gross PA-C - Last Filed: 07/07/24 13:41> Vital Signs Temperature 102.9 F H 07/07/24 09:02 Pulse Rate 121 H 07/07/24 09:02 Respiratory Rate 19 07/07/24 09:02 Blood Pressure 112/76 07/07/24 09:02 Pulse Oximetry 86 L 07/07/24 09:02 Oxygen Delivery Room Air 07/07/24 09:02 Temperature 98 F 07/07/24 13:45 Pulse Rate 87 07/07/24 16:44 Respiratory Rate 16 07/07/24 14:06 Blood Pressure 100/62 07/07/24 13:45 Pulse Oximetry 96 07/07/24 14:06 Oxygen Delivery Nasal Cannula 07/07/24 14:06 Oxygen Flow Rate 2 07/07/24 14:06 <Yaniv Mcclellan MD - Last Filed: 07/07/24 18:25> Lab Data Lab results reviewed: Yes I reviewed the patient's lab results. <Tori Gross PA-C - Last Filed: 07/07/24 13:41> Result diagrams: 07/07/24 09:08 07/07/24 09:08 <Tori Gross PA-C - Last Filed: 07/07/24 13:41> Labs: Lab Results 07/07/24 07/07/24 Range/Units 09:08 10:47 WBC 12.3 H (4.5-10.0) K/mm3 RBC 4.69 (4.6-6.20) M/mm3 Hgb 14.1 (14.0-18.0) g/dL Hct 40.6 L (42.0-52.0) % MCV 86.6 (80-100) fl MCH 30.1 (26-34) pg MCHC 34.7 (32-36) g/dl RDW 14.1 (11.5-14.5) % Plt Count 245 (150-375) k/mm3 MPV 8.9 (7.4-10.4) fl Immature Gran % (Auto) 0.3 (0-0.5) % Neut % (Auto) 83.1 H (45.5-73.1) % Lymph % (Auto) 7.8 L (18.3-44.2) % Isabella % (Auto) 7.6 (2.6-8.5) % Eos % (Auto) 0.6 (0-4.4) % Baso % (Auto) 0.6 (0.2-1.2) % Lymph # (Auto) 0.96 (0.9-3.2) K/mm3 Isabella # (Auto) 0.9 H (0.1-0.6) K/mm3 Eos # (Auto) 0.1 (0-0.3) K/mm3 Baso # (Auto) 0.1 (0.0-0.1) K/mm3 Abs Immat Gran (auto) 0.04 H (0.00-0.031) K/mm3 Absolute Neuts (auto) 10.3 H (1.3-6.7) K/mm3 Absolute Nucleated RBC 0.000 (0.0-0.012) K/mm3 Nucleated RBC % 0.0 (0.0-0.2) % PT 13.4 (11.1-14.7) Seconds INR 1.0 APTT 32.7 (22.3-36.8) Seconds Sodium 136 L (137-145) mmol/L Potassium 4.9 (3.4-5.0) mmol/L Chloride 100 (98-107) mmol/L Carbon Dioxide 26 (22-30) mmol/L Anion Gap 10 (4-12) mmol/L BUN 10 (9-20) mg/dL Creatinine 1.02 (0.7-1.3) mg/dL Estim Creat Clear Calc 68 ml/min Estimated GFR > 60 (59 - ) Glucose 111 H (65-110) mg/dL Lactic Acid 1.7 (0.7-2.0) mmol/L Calcium 9.2 (8.4-10.2) mg/dL Total Bilirubin 1.2 (0.2-1.3) mg/dL AST 33 (17-59) U/L ALT 28 (6-50) U/L Alkaline Phosphatase 117 (38-126) U/L Troponin I < 0.012 (0.000-0.034) ng/mL Total Protein 8.0 (6.3-8.2) g/dL Albumin 4.5 (3.5-5.1) g/dL Lipase 108 (23-300) U/L Urine Color Yellow (Yellow) Urine Appearance Clear (Clear) Urine pH 7.5 (5.0-9.0) Ur Specific [place] 1.036 H (1.001-1.035) Urine Protein Negative (Negative) mg/dL Urine Glucose (UA) Negative (Negative) mg/dL Urine Ketones Negative (Negative) mg/dL Ur Blood (Man) Non-hemolyzed trace (Negative) Urine Nitrate Negative (Negative) Urine Bilirubin Negative (Negative) Urine Urobilinogen 0.2 (<2.0) mg/dL Leukocyte Esterase Rfl 3+ H (Negative) PATRICK/UL Influenza A (RT-PCR) Negative (Negative) Influenza B (RT-PCR) Negative (Negative) RSV (RT-PCR) Negative (Negative) SARS-CoV-2 RNA (RT-PCR) Negative (Negative) <Tori Gross PA-C - Last Filed: 07/07/24 13:41> Lab Results 07/07/24 07/07/24 Range/Units 09:08 10:47 WBC 12.3 H (4.5-10.0) K/mm3 RBC 4.69 (4.6-6.20) M/mm3 Hgb 14.1 (14.0-18.0) g/dL Hct 40.6 L (42.0-52.0) % MCV 86.6 (80-100) fl MCH 30.1 (26-34) pg MCHC 34.7 (32-36) g/dl RDW 14.1 (11.5-14.5) % Plt Count 245 (150-375) k/mm3 MPV 8.9 (7.4-10.4) fl Immature Gran % (Auto) 0.3 (0-0.5) % Neut % (Auto) 83.1 H (45.5-73.1) % Lymph % (Auto) 7.8 L (18.3-44.2) % Isabella % (Auto) 7.6 (2.6-8.5) % Eos % (Auto) 0.6 (0-4.4) % Baso % (Auto) 0.6 (0.2-1.2) % Lymph # (Auto) 0.96 (0.9-3.2) K/mm3 Isabella # (Auto) 0.9 H (0.1-0.6) K/mm3 Eos # (Auto) 0.1 (0-0.3) K/mm3 Baso # (Auto) 0.1 (0.0-0.1) K/mm3 Abs Immat Gran (auto) 0.04 H (0.00-0.031) K/mm3 Absolute Neuts (auto) 10.3 H (1.3-6.7) K/mm3 Absolute Nucleated RBC 0.000 (0.0-0.012) K/mm3 Nucleated RBC % 0.0 (0.0-0.2) % PT 13.4 (11.1-14.7) Seconds INR 1.0 APTT 32.7 (22.3-36.8) Seconds Sodium 136 L (137-145) mmol/L Potassium 4.9 (3.4-5.0) mmol/L Chloride 100 (98-107) mmol/L Carbon Dioxide 26 (22-30) mmol/L Anion Gap 10 (4-12) mmol/L BUN 10 (9-20) mg/dL Creatinine 1.02 (0.7-1.3) mg/dL Estim Creat Clear Calc 68 ml/min Estimated GFR > 60 (59 - ) Glucose 111 H (65-110) mg/dL Lactic Acid 1.7 (0.7-2.0) mmol/L Calcium 9.2 (8.4-10.2) mg/dL Total Bilirubin 1.2 (0.2-1.3) mg/dL AST 33 (17-59) U/L ALT 28 (6-50) U/L Alkaline Phosphatase 117 (38-126) U/L Troponin I < 0.012 (0.000-0.034) ng/mL Total Protein 8.0 (6.3-8.2) g/dL Albumin 4.5 (3.5-5.1) g/dL Lipase 108 (23-300) U/L Urine Color Yellow (Yellow) Urine Appearance Clear (Clear) Urine pH 7.5 (5.0-9.0) Ur Specific [place] 1.036 H (1.001-1.035) Urine Protein Negative (Negative) mg/dL Urine Glucose (UA) Negative (Negative) mg/dL Urine Ketones Negative (Negative) mg/dL Ur Blood (Man) Non-hemolyzed trace (Negative) Urine Nitrate Negative (Negative) Urine Bilirubin Negative (Negative) Urine Urobilinogen 0.2 (<2.0) mg/dL Leukocyte Esterase Rfl 3+ H (Negative) PATRICK/UL Influenza A (RT-PCR) Negative (Negative) Influenza B (RT-PCR) Negative (Negative) RSV (RT-PCR) Negative (Negative) SARS-CoV-2 RNA (RT-PCR) Negative (Negative) <Yaniv Mcclellan MD - Last Filed: 07/07/24 18:25> Imaging Data Attestation: I personally reviewed and interpreted this imaging study as follows: < Tori Gross PA-C - Last Filed: 07/07/24 13:41> Radiologist's impression: ITS Impressions Chest/Abdomen/Pelvis CTA 07/07/24 10:28 IMPRESSION: 1. No evident pulmonary embolism. Sensitivity decreased in some of the smaller subsegmental pulmonary arteries due to motion artifact. 2. Moderate emphysema with left lower lobe pneumonia. 3. Moderate-sized sliding-type hiatal hernia. 4. Unchanged mild diffuse bladder wall thickening which may relate to chronic outlet obstruction. <Tori Gross PA-C - Last Filed: 07/07/24 13:41> ECG Data EKG #1: Attestation: I personally reviewed and interpreted this ECG as follows: <Tori Gross PA-C - Last Filed: 07/07/24 13:41> ECG completion date: 07/07/24 <CRAIG Cisneros Last Filed: 07/07/24 13:41> ECG completion time: 11:00 <CRAIG Cisneros Last Filed: 07/07/24 13:41> EKG Interpretation: tachycardia (105), sinus rhythm, no ST changes and other (some baseline artifact present) <CRAIG Cisneros Last Filed: 07/07/24 13:41> Discharge Plan Discharge Clinical Impression: Close exposure to COVID-19 virus, Acute hypoxic respiratory failure Sepsis Qualifiers: Sepsis type: sepsis due to unspecified organism Sepsis acute organ dysfunction status: unspecified Qualified Code(s): A41.9 - Sepsis, unspecified organism Left lower lobe pneumonia Qualifiers: Pneumonia type: due to unspecified organism Qualified Code(s): J18.9 - Pneumonia, unspecified organism Nausea and vomiting Qualifiers: Vomiting type: unspecified Qualified Code(s): R11.2 - Nausea with vomiting, unspecified <Tori Gross PA-C - Last Filed: 07/07/24 13:41> Patient Disposition: Still a Patient <Tori Gross PA-C - Last Filed: 07/07/24 13:41> Condition: Stable <Tori Gross PA-C - Last Filed: 07/07/24 13:41>
[2024-07-07 10:00] LABS: Influenza A QL RT-PCR Negative (Negative); Influenza B QL RT-PCR Negative (Negative); RSV RNA, RT-PCR Negative (Negative); SARS-CoV-2 RNA PCR Negative (Negative)
[2024-07-07] MEDS: ACETAMINOPHEN 325 MG TABLET PO (10:19)
[2024-07-07 10:26] LABS: Troponin I < 0.012 ng/mL (0.000-0.034)
[2024-07-07 10:34] LABS: Prothrombin Time 13.4 Seconds (11.1-14.7)
--- NOTE | 2024-07-07 10:43 | ECG_ITS ---
Test Date: 2024-07-07 11:00:27 Measurements Intervals [place] Rate: 105 P: 28 [place]: 145 QRS: 84 QRSD: 74 T: 73 QT: 326 QTc: 431 Interpretive Statements SINUS TACHYCARDIA BASELINE ARTIFACT- I, II, III, AVR, V5-V6 BORDERLINE ECG No previous ECG available for comparison Electronically Signed On 07-07-2024 11:29:48 CDT by Ramin Baxter D.O.
[2024-07-07 10:50] LABS: Partial Thromboplastin Time 32.7 Seconds (22.3-36.8)
[2024-07-07] MEDS: AZITHROMYCIN 500 MG/NS 250 ML 500 MG/250 ML BAG 250 MG IVPB (10:52)
[2024-07-07 11:32] LABS: Add Urine Microscopic? YES; Appearance Urine Clear (Clear); Bilirubin Urine Negative (Negative); Blood Urine Non-Hemolyzed Trace (Negative); Color Urine Yellow (Yellow); Glucose Urine UA Negative (Negative); Ketones Urine Negative (Negative); Leukocyte Esterase Ur 3+ LEU/UL (Negative); Nitrate Urine Negative (Negative); Protein Urine Negative (Negative); Specific Grav Ur 1.036 (1.001-1.035); Urobilinogen Urine 0.2 mg/dL (<2.0); pH Urine 7.5 (5.0-9.0)
--- NOTE | 2024-07-07 12:48 | P.HP_ITS ---
H&P: HPI History of Present Illness Date/Time: 07/07/24 12:48 Chief Complaint: Vomiting, Fever Narrative: 64 y/o M with PMH of Wernicke's encephalopathy, dementia, and COPD with nausea, vomiting, and fever. The patient presents here from [facility] via EMS for further evaluation of nausea, vomiting, and fever. He reports he has been feeling unwell for the past week with general malaise, cough, shortness of breath. He developed a fever today prompting today's visit. He denies associated chest pain or dizziness. EMS reported that there are multiple residents within his facility that have tested positive for COVID. He was given Tylenol and Zofran at his facility prior to arrival. He arrived to the emergency department febrile at 102.9? F and hypoxic at 86% on room air. Now 95% on 2L NC. He has no previous known oxygen requirement. He does have a history of COPD. Reports he is a current everyday smoker - 1 PPD x40 years. He is unsure why he is currently at [facility]. History limited, patient poor historian (A/Ox3 - self, place, year but not able to provide situational history/recent history). Initial VS at presentation: 102.9? F right, HR 121, RR 19, 112/76, and 86% on room air. Now 95% on 2L NC. ED workup showed: WBC 12.3, no anemia, normal coags, no significant electrolyte derangements, creatinine 1.02 and GFR >60, initial troponin negative, and UA showed 3+ leuks otherwise unremarkable, viral PCR negative. CTA chest/abdomen/pelvis showed no PE, moderate emphysema with left lower lobe pneumonia, moderate sized sliding type hiatal hernia, unchanged mild diffuse bl adder wall thickening which may be related to chronic outlet obstruction. EKG showed sinus tachycardia, rate 105, baseline artifact. Review of Systems Review of Systems: All systems reviewed & are unremarkable except as noted in HPI and below PMFSH Past Medical History Medical History Wernicke encephalopathy Anxiety GERD (gastroesophageal reflux disease) COPD (chronic obstructive pulmonary disease) Surgical History Surgical History History of appendectomy Social History Social History Smoking packs per day: 0.5 Smoking cigarettes per day: 10.0 Years smoked: 42 Smoking pack-years: 21.00 Smoking status: Current some day smoker Tobacco type: cigarettes Do You Feel Safe in your Home?: Yes Lack of Transportation: No Lack of Food: Never True Current Housing: I Have Housing Concerned About Future Housing: No Difficulty Paying Gas/Electric Bills: No Difficulty Paying for Meds: No Currently Unemployed: No Education: High School Diploma/GED Difficulty w/ Childcare or Family Care: No Spiritual care concerns: No Meds Home Medications and Allergies Home Medications ?Medication ?Instructions ?Recorded ?Confirmed ?Type acetaminophen 325 mg capsule 325 mg PO Q6H PRN pain 07/07/24 07/07/24 History albuterol sulfate 90 mcg/actuation 2 inh inhalation Q4-6H PRN 07/07/24 07/07/24 History breath activated powder inhaler shortness of breath amlodipine 10 mg tablet 10 mg PO DAILY 07/07/24 07/07/24 History budesonide-formoterol HFA 160 2 inh inhalation Q12H 07/07/24 07/07/24 History mcg-4.5 mcg/actuation aerosol inhaler (Breyna) buspirone 10 mg tablet 10 mg PO BID 07/07/24 07/07/24 History cetirizine 10 mg tablet (All Day 10 mg PO DAILY 07/07/24 07/07/24 History Allergy (cetirizine)) famotidine 20 mg tablet (Acid 20 mg PO BID 07/07/24 07/07/24 History [employer] Grade Teacher (famotidine)) ferrous sulfate 325 mg (65 mg 325 mg PO DAILY 07/07/24 07/07/24 History iron) tablet (Feosol) fluticasone propionate 50 1 spray intranasal DAILY 07/07/24 07/07/24 History mcg/actuation nasal spray,suspension (Allergy Relief (fluticasone)) folic acid 1 mg tablet 1 mg PO DAILY 07/07/24 07/07/24 History gabapentin 300 mg capsule 300 mg PO TID 07/07/24 07/07/24 History magnesium oxide 400 mg PO DAILY 07/07/24 07/07/24 History meclizine 25 mg tablet 25 mg PO Q8H PRN dizziness 07/07/24 07/07/24 History memantine 10 mg tablet (Namenda) 10 mg PO BID 07/07/24 07/07/24 History multivitamin,ck-vnqf-At-FA-min 1 tablet PO DAILY 07/07/24 07/07/24 History nicotine 14 mg/24 hr daily 1 patch transdermal DAILY PRN 07/07/24 07/07/24 History transdermal patch withdrawal symptoms omeprazole 20 mg capsule,delayed 20 mg PO DAILY 07/07/24 07/07/24 History release propylene glycol 1 %-glycerin 0.3 1 drp EACH EYE BID PRN dry eye(s) 07/07/24 07/07/24 History % eye drops (Lubricant (propylene glycol-glycerin)) Allergies Allergy/AdvReac Type Severity Reaction Status Date / Time No Known Allergies Allergy Verified 07/07/24 09:06 Vital Signs Vital Signs - 24 hr 07/07/24 09:02 07/07/24 09:11 07/07/24 09:15 Temperature 102.9 F H Pulse Rate 121 H 118 H 125 H Respiratory Rate 19 19 20 Blood Pressure 112/76 117/68 Pulse Oximetry 86 L 95 96 Oxygen Delivery Room Air Oxygen Flow Rate 07/07/24 09:15 07/07/24 09:16 07/07/24 09:16 Temperature Pulse Rate 119 H 117 H Respiratory Rate 19 15 Blood Pressure 117/68 Pulse Oximetry 95 96 96 Oxygen Delivery Nasal Cannula Oxygen Flow Rate 2 07/07/24 09:30 07/07/24 09:45 07/07/24 09:58 Temperature 102.1 F H Pulse Rate 112 H 110 H Respiratory Rate 18 17 Blood Pressure Pulse Oximetry 99 99 Oxygen Delivery Oxygen Flow Rate 07/07/24 10:17 07/07/24 10:18 07/07/24 10:19 Temperature Pulse Rate 116 H 101 H 101 H Respiratory Rate 18 19 13 Blood Pressure 131/85 131/85 Pulse Oximetry 97 97 96 Oxygen Delivery Oxygen Flow Rate 07/07/24 10:30 07/07/24 10:31 07/07/24 10:45 Temperature Pulse Rate 100 100 130 H Respiratory Rate 17 16 21 H Blood Pressure 130/74 Pulse Oximetry 98 100 Oxygen Delivery Oxygen Flow Rate 07/07/24 11:04 07/07/24 11:05 07/07/24 12:01 Temperature 98.7 F Pulse Rate 104 H 98 Respiratory Rate 17 16 Blood Pressure 124/67 Pulse Oximetry 92 95 Oxygen Delivery Oxygen Flow Rate Exam Narrative: diminished bibasilar (worse on left than right). A/Ox self, year, and place. Poor situational recall. Const: General: comfortable and no acute distress Other: , male, older than stated age, nontoxic appearance HENMT: Face/Nose/Sinus: Normal nares present Mouth: Yes moist mucous membranes Eyes: General: appearance normal, both eyes and all related structures Sclera: sclerae normal Pupils: Equal, round and reactive pupils present EOM: EOMs intact bilaterally Resp: Effort & Inspection: normal respiratory effort Other: Nasal cannula place, tolerating well. Bibasilar lung sounds diminished, left worse than right. No wheezing. Cardio: Rate: regular rate Rhythm: regular rhythm Other: S1-S2 present without murmur, rub, ectopy GI: Other: Abdomen soft, nondistended, nontender. Normoactive bowel sounds in all quadrants. Skin: General skin exam: normal color and no rashes or lesions noted Wounds: no wounds Neuro: Speech: normal speech Motor exam (neuro): 5/5 motor strength present throughout Sensory Exam: normal sensation Other: A&O to self, place, year. Unable to provide situational history or recent history. Extrem: General: normal to inspection Psych: Mental Status: mental status grossly normal Affect: normal affect Other: Poor insight and judgment at present, pleasant H&P: Results Labs Labs: Short CBC 07/07/24 Range/Units 09:08 WBC 12.3 H (4.5-10.0) K/mm3 Hgb 14.1 (14.0-18.0) g/dL Hct 40.6 L (42.0-52.0) % Plt Count 245 (150-375) k/mm3 BMP 07/07/24 09:08 Sodium 136 L Potassium 4.9 Chloride 100 Carbon Dioxide 26 BUN 10 Creatinine 1.02 Glucose 111 H Calcium 9.2 Cardiac Enzymes 07/07/24 Range/Units 09:08 Troponin I < 0.012 (0.000-0.034) ng/mL Liver Function 07/07/24 Range/Units 09:08 Total Bilirubin 1.2 (0.2-1.3) mg/dL AST 33 (17-59) U/L ALT 28 (6-50) U/L Alkaline Phosphatase 117 (38-126) U/L Albumin 4.5 (3.5-5.1) g/dL Urine 07/07/24 Range/Units 10:47 Urine Color Yellow (Yellow) Urine Appearance Clear (Clear) Urine pH 7.5 (5.0-9.0) Ur Specific [place] 1.036 H (1.001-1.035) Urine Protein Negative (Negative) mg/dL Urine Glucose (UA) Negative (Negative) mg/dL Assessment and Plan Assessment and plan (1) Acute hypoxic respiratory failure: Code(s): J96.01 - Acute respiratory failure with hypoxia Status: Acute Assessment and Plan: - CTA chest/abd/pelvis: 1. No evident pulmonary embolism. Sensitivity decreased in some of the smaller subsegmental pulmonary arteries due to motion artifact. 2. Moderate emphysema with left lower lobe pneumonia. 3. Moderate-sized sliding-type hiatal hernia. 4. Unchanged mild diffuse bladder wall thickening which may relate to chronic outlet obstruction. - viral PCR negative on 07/07 - EKG, initial: Sinus tachycardia, rate 105, baseline artifact, borderline EKG. - initial troponin negative - currently requiring 2L NC to maintain O2 sat greater than 92%. Continue to maintain greater than 92%, wean as tolerated. Suspect acute hypoxic respiratory failure secondary to pneumonia. +/-recent COVID, currently testing negative however there are multiple positive cases within his facility. Placed on droplet isolation. (2) Sepsis: Qualifiers: Sepsis acute organ dysfunction status: unspecified Sepsis type: sepsis due to unspecified organism Qualified Code(s): A41.9 - Sepsis, unspecified organism Code(s): A41.9 - Sepsis, unspecified organism Status: Acute Assessment and Plan: - meets SIRS criteria: HR 120 use, fever 102.9, WBC 12.3. +hypoxia, no hypotension. - lactic acid: 1.7 - 30 mL/kg = 2.7L, given 2L bolus. monitor toleration. - suspected source: LLL PNA - started on ceftriaxone and azithromycin on 07/07 - blood cultures drawn on 07/07 - UA: 1.036, 3+ leuks. Mild diffuse bladder wall thickening on CT, may be related to chronic outlet obstruction. No previous micro available for review. Urine culture pending, follow. - monitor hemodynamic stability (3) Left lower lobe pneumonia: Qualifiers: Pneumonia type: due to unspecified organism Qualified Code(s): J18.9 - Pneumonia, unspecified organism Code(s): J18.9 - Pneumonia, unspecified organism Status: Acute Assessment and Plan: - risk factors and complicating factors: High suspicion for recent exposure to COVID, snf resident, sepsis - started on CAP tx: ceftriaxone and azithromycin - check MRSA PCR and sputum culture - Viral PCR negative - supportive care - continue supplemental oxygen to maintain O2 saturation greater than 92%, weakness tolerated. (4) COPD (chronic obstructive pulmonary disease): Qualifiers: COPD type: emphysema Emphysema type: unspecified Qualified Code(s): J43.9 - Emphysema, unspecified Code(s): J44.9 - Chronic obstructive pulmonary disease, unspecified Status: Acute Assessment and Plan: - DuoNeb p.r.n. - prednisone 40 mg x 5 days (5) Close exposure to COVID-19 virus: Code(s): Z20.822 - Contact with and (suspected) exposure to COVID-19 Status: Acute Assessment and Plan: - PCR negative on 07/07 - placed on droplet precautions Plan Diet: Heart healthy GI Prophylaxis: Not currently indicated DVT Prophylaxis: Lines: Peripheral Code Status: Full code Quality VTE Prophylaxis VTE prophylaxis: mechanical ordered Hospitalist MIPS Advance Care Plan I have confirmed that the patient's Advanced Care Plan is present, code status is documented, or surrogate decision maker is listed in patient medical record.: Yes Medication Reconciliation I have utilized all available resources to obtain, update and review the patients current medications (includes all prescriptions, OTC, herbals, cannabis, and nutritional supplements).: Yes
--- NOTE | 2024-07-07 13:16 | PC.NURSE ---
two attempts made to straight cath the patient for urine sample. even with coude the straight cath was unsuccessful
--- NOTE | 2024-07-07 13:45 | ADMGEN ---
This patient, Elton Garcia, was admitted to Medical Room 252-. Patient/family oriented to hospital policies and general routines including ID bracelet, bed and alarms, visiting hours, pain management, procedures, bathroom and other care routines, personal items, smoking policy, room service/diet, and visiting hours. Information on how to activate the Rapid Response Team has been discussed. Patient/Family are encouraged to report perceived risks to care and to ask questions if they do not understand what they are told or what they should do.
[2024-07-07 15:50] LABS: MRSA (PCR) NOT DETECTED (NOT DETECTE)
[2024-07-07] MEDS: guaiFENesin 12 HR 600 MG TABCR PO (20:46)
[2024-07-07] MEDS: MEMANTINE 10 MG TABLET PO (21:44)
[2024-07-07] MEDS: ONDANSETRON INJ 4 MG/2 ML VIAL IV PUSH (21:44)
[2024-07-07] MEDS: busPIRone HCL 10 MG TABLET PO (21:44)
[2024-07-08] VITALS (11 sets, daily range): BP systolic 116–130; BP diastolic 52–82; PULSE 90–107; RESP 18–22; TEMP 36.7–36.9; O2SAT 91–94
[2024-07-08] MEDS: ONDANSETRON INJ 4 MG/2 ML VIAL IV PUSH (04:46)
[2024-07-08 05:12] LABS: Basophils Absolute Auto 0.1 K/mm3 (0.0-0.1); Basophils Percent Auto 0.3 % (0.2-1.2); Eosinophils Percent Auto 0.1 % (0-4.4); Hematocrit 40.2 % (42.0-52.0); Hemoglobin 13.2 g/dL (14.0-18.0); Immature Granulocyte Absolute 0.08 K/mm3 (0.00-0.031); Immature Granulocyte Percent A 0.5 % (0-0.5); Lymphocytes Absolute Auto 1.38 K/mm3 (0.9-3.2); Mean Corpuscular HGB Conc 32.8 g/dl (32-36); Mean Corpuscular Hemoglobin 29.7 pg (26-34); Mean Corpuscular Volume 90.3 fl (80-100); Mean Platelet Volume 9.1 fl (7.4-10.4); Monocytes Percent Auto 6.3 % (2.6-8.5); Neutrophils Absolute Auto 12.8 K/mm3 (1.3-6.7); Neutrophils Percent Auto 83.8 % (45.5-73.1); Platelet Count Result 226 k/mm3 (150-375); Red Blood Count 4.45 M/mm3 (4.6-6.20); Red Cell Distribution Width 14.4 % (11.5-14.5); White Blood Count 15.3 K/mm3 (4.5-10.0)
[2024-07-08 05:20] LABS: Anion Gap 9 mmol/L (4-12); Blood Urea Nitrogen 10 mg/dL (9-20); Calcium 8.8 mg/dL (8.4-10.2); Carbon Dioxide 27 mmol/L (22-30); Chloride 102 mmol/L (98-107); Estimated CRCL calculation 70 ml/min; Estimated Glomerular Filt Rate > 60; Glucose 115 mg/dL (65-110); Potassium 3.9 mmol/L (3.4-5.0); Sodium 138 mmol/L (137-145)
--- NOTE | 2024-07-08 07:47 | P.PNIM_ITS ---
Progress Note: A&P Assessment and Plan (1) Acute hypoxic respiratory failure: Code(s): J96.01 - Acute respiratory failure with hypoxia Status: Acute Assessment and Plan: Suspect acute hypoxic respiratory failure secondary to pneumonia. - CTA chest/abd/pelvis: 1. No evident pulmonary embolism. Sensitivity decreased in some of the smaller subsegmental pulmonary arteries due to motion artifact. 2. Moderate emphysema with left lower lobe pneumonia. 3. Moderate-sized sliding-type hiatal hernia. 4. Unchanged mild diffuse bladder wall thickening which may relate to chronic outlet obstruction. - viral PCR negative on 07/07, however multiple + covid cases within his facility. Placed on droplet isolation. - EKG, initial: Sinus tachycardia, rate 105, baseline artifact, borderline EKG. - initial troponin negative - currently requiring 2L NC to maintain O2 sat greater than 88%, wean as tolerated. (2) Sepsis: Qualifiers: Sepsis acute organ dysfunction status: unspecified Sepsis type: sepsis due to unspecified organism Qualified Code(s): A41.9 - Sepsis, unspecified organism Code(s): A41.9 - Sepsis, unspecified organism Status: Acute Assessment and Plan: - meets SIRS criteria: HR 120, fever 102.9, WBC 12.3. +hypoxia, no hypotension. - lactic acid: 1.7 - 30 mL/kg = 2.7L, given 2L bolus. monitor toleration. - suspected source: LLL PNA - started on ceftriaxone and azithromycin on 07/07 - blood cultures drawn on 07/07 - UA: 1.036, 3+ leuks. Mild diffuse bladder wall thickening on CT, may be related to chronic outlet obstruction. No previous micro available for review. Urine culture pending, follow. - monitor hemodynamic stability WBC slightly elevated today compared to admission, likely related to prednisone use. Remains afebrile and HR stable. (3) Left lower lobe pneumonia: Qualifiers: Pneumonia type: due to unspecified organism Qualified Code(s): J18.9 - Pneumonia, unspecified organism Code(s): J18.9 - Pneumonia, unspecified organism Status: Acute Assessment and Plan: - risk factors and complicating factors: High suspicion for recent exposure to COVID, [facility] resident, sepsis - CTA chest/abd/pelvis: 1. No evident pulmonary embolism. Sensitivity decreased in some of the smaller subsegmental pulmonary arteries due to motion artifact. 2. Moderate emphysema with left lower lobe pneumonia. 3. Moderate-sized sliding-type hiatal hernia. 4. Unchanged mild diffuse bladder wall thickening which may relate to chronic outlet obstruction. - viral PCR negative on 07/07, however multiple + covid cases within his facility. Placed on droplet isolation. - MRSA negative - Sputum cultures pending - started on CAP tx: azithromycin ceftriaxone on 07/07 - Consider ordering legionella, mycoplasma and pneumococcal - Requiring 2L NC (baseline room air), wean as tolerated for spo2 > 88% for cocurrent COPD - Monitor vital signs, I&Os, neuro status and patient is a fall risk - Follow WBC, serum electrolytes, temperature curves and cultures (4) COPD (chronic obstructive pulmonary disease): Qualifiers: COPD type: emphysema Emphysema type: unspecified Qualified Code(s): J43.9 - Emphysema, unspecified Code(s): J44.9 - Chronic obstructive pulmonary disease, unspecified Status: Acute Assessment and Plan: Slight expiratory wheezes on auscultation. - DuoNeb p.r.n. - prednisone 40 mg x 5 days (5) Close exposure to COVID-19 virus: Code(s): Z20.822 - Contact with and (suspected) exposure to COVID-19 Status: Acute Assessment and Plan: - PCR negative on 07/07 - placed on droplet precautions Plan Diet: Heart healthy GI Prophylaxis: Not currently indicated DVT Prophylaxis: SCD Lines: Peripheral Code Status: Full code Time Spent With Patient Time with patient: 25 - 35 minutes Subjective Date/time seen: 07/08/24 07:47 Interval history: 64 y/o M with PMH of Wernicke's encephalopathy, dementia, and COPD with nausea, vomiting, and fever. Patient is pleasant lying comfortably in bed. Upon assessment patient had taking on his oxygen and was satting 85-87% on room air. Patient placed back on 2 L nasal cannula and oxygen saturation improved. Patient states shortness of breath has improved since admission and continues to endorse a cough. No other complaints denying chest pain, palpitations, nausea/vomiting, and abdominal pain. Of note patient states he was wheelchair-bound however per sister he is ambulatory with a walker. Review of Systems Review of Systems: All systems reviewed & are unremarkable except as noted in HPI and below Exam Narrative: AF HR 107 RR 18 SpO2 93 2L NC (baseline RA) BP 130/81 General: male in no acute respiratory distress who is nontoxic appearing, lying semi recumbent in bed. HEENT: Normocephalic. Atraumatic. Extraocular movement intact. Sclera clear and anicteric. No facial asymmetry. Chest: Lungs are coarse to auscultation of the LLL, diminished to the right, and slight expiratory wheezes bilaterally. CV: Heart was regular rate and rhythm. S1/S2. No murmurs, gallops, or rubs. Abd: Abdomen was soft. Nontender. Nondistended. Positive bowel sounds. Ext: No clubbing, cyanosis, or edema. DP pulses bilaterally. Neuro: Patient is alert. Speech is clear. Objective Data Vital Signs Vital Signs: Vital Signs - 24 hr 07/07/24 09:02 07/07/24 09:11 07/07/24 09:15 Temperature 102.9 F H Pulse Rate 121 H 118 H 125 H Respiratory Rate 19 19 20 Blood Pressure 112/76 117/68 Pulse Oximetry 86 L 95 96 Oxygen Delivery Room Air Oxygen Flow Rate 07/07/24 09:15 07/07/24 09:16 07/07/24 09:16 Temperature Pulse Rate 119 H 117 H Respiratory Rate 19 15 Blood Pressure 117/68 Pulse Oximetry 95 96 96 Oxygen Delivery Nasal Cannula Oxygen Flow Rate 2 07/07/24 09:30 07/07/24 09:45 07/07/24 09:58 Temperature 102.1 F H Pulse Rate 112 H 110 H Respiratory Rate 18 17 Blood Pressure Pulse Oximetry 99 99 Oxygen Delivery Oxygen Flow Rate 07/07/24 10:17 07/07/24 10:18 07/07/24 10:19 Temperature Pulse Rate 116 H 101 H 101 H Respiratory Rate 18 19 13 Blood Pressure 131/85 131/85 Pulse Oximetry 97 97 96 Oxygen Delivery Oxygen Flow Rate 07/07/24 10:30 07/07/24 10:31 07/07/24 10:45 Temperature Pulse Rate 100 100 130 H Respiratory Rate 17 16 21 H Blood Pressure 130/74 Pulse Oximetry 98 100 Oxygen Delivery Oxygen Flow Rate 07/07/24 11:04 07/07/24 11:05 07/07/24 12:01 Temperature 98.7 F Pulse Rate 104 H 98 Respiratory Rate 17 16 Blood Pressure 124/67 Pulse Oximetry 92 95 Oxygen Delivery Oxygen Flow Rate 07/07/24 13:45 07/07/24 14:06 07/07/24 16:44 Temperature 98 F Pulse Rate 92 92 87 Respiratory Rate 16 16 Blood Pressure 100/62 Pulse Oximetry 96 96 Oxygen Delivery Nasal Cannula Oxygen Flow Rate 2 07/07/24 20:00 07/07/24 20:00 07/07/24 20:44 Temperature 98.4 F Pulse Rate 104 H 96 Respiratory Rate 16 Blood Pressure 146/77 H Pulse Oximetry 99 99 Oxygen Delivery Nasal Cannula Oxygen Flow Rate 2 07/08/24 00:00 07/08/24 04:00 07/08/24 05:44 Temperature 98.5 F Pulse Rate 90 97 107 H Respiratory Rate 18 Blood Pressure 130/81 Pulse Oximetry 93 Oxygen Delivery Oxygen Flow Rate Intake/Output Intake/Output: Intake & Output 07/05/24 07/06/24 07/07/24 07/08/24 23:59 23:59 23:59 23:59 Intake Total 2540 150 Output Total 950 Balance 1590 150 Meds/Results Medications: Active Medications Generic Name Dose Route Start Last Admin Trade Name Freq PRN Reason Stop Dose Admin Acetaminophen 650 mg 07/07/24 12:25 Acetaminophen 325 Mg Tablet PO Q4H PRN Mild Pain (1-3) or Fever Albuterol/Ipratropium 3 ml 07/07/24 14:18 Ipratropium 0.5 Mg/Albuterol Sulfate 2.5 Mg Ampul.Neb 3 Ml INHALATION Q6HRT PRN Shortness Of Breath Or Wheezing Amlodipine Besylate 10 mg 07/08/24 09:00 Amlodipine Besylate 10 Mg Tablet PO DAILY DANA Artificial Tears 1 drop 07/07/24 21:11 Artificial Tears Ophth Soln 15 Ml Bottle EACH EYE Q12HR PRN dry eye(s) Benzonatate 100 mg 07/07/24 13:54 Benzonatate 100 Mg Capsule PO TID PRN Cough Buspirone HCl 10 mg 07/07/24 21:20 07/07/24 21:44 Buspirone Hcl 10 Mg Tablet PO 10 mg Q12HR [facility] Administration Famotidine 20 mg 07/08/24 09:00 Famotidine 20 Mg Tablet PO Q12HR [facility] Ferrous Sulfate 325 mg 07/08/24 09:00 Ferrous Sulfate [address] BY MOUTH DAILY [facility] Fluticasone Propionate 1 spray 07/08/24 09:00 Fluticasone Propionate 0.05% Na Spr 16 Gm Btl (*Bkc) NASAL DAILY [facility] Folic Acid 1 mg 07/08/24 09:00 Folic Acid 1 Mg Tablet PO DAILY [facility] Gabapentin 300 mg 07/08/24 09:00 Gabapentin 300 Mg Capsule PO TID [facility] Guaifenesin 600 mg 07/07/24 21:00 07/07/24 20:46 Guaifenesin 12 Hr 600 Mg Tabcr PO 600 mg Q12HR [facility] Administration Ceftriaxone Sodium 1 gm in 50 mls @ 100 mls/hr 07/08/24 12:00 Rocephin 1 Gm/Ns 50 Ml IVPB Q24H DANA Azithromycin 500 mg in 250 mls @ 250 mls/hr 07/08/24 12:00 Zithromax IVPB Q24H [facility] Loratadine 10 mg 07/08/24 09:00 Loratadine 10 Mg Tablet PO QAM [facility] Magnesium Oxide 400 mg 07/08/24 09:00 Magnesium Oxide 400 Mg Tablet PO DAILY [facility] Meclizine HCl 25 mg 07/07/24 21:11 Meclizine Hcl 25 Mg Tablet PO Q8H PRN dizziness Memantine 10 mg 07/07/24 21:20 07/07/24 21:44 Memantine 10 Mg Tablet PO 10 mg Q12HR [facility] Administration Nicotine 1 patch 07/07/24 21:11 Nicotine (*Pbkc) 14 Mg Patch TRANSDERM DAILY PRN withdrawal symptoms Ondansetron HCl 4 mg 07/07/24 20:00 07/08/24 04:46 Ondansetron Inj 4 Mg/2 Ml Vial IV PUSH 4 mg Q6H PRN Administration Nausea And Vomiting Pantoprazole Sodium 40 mg 07/08/24 09:00 Pantoprazole 40 Mg Tablet PO QAM [facility] Prednisone 40 mg 07/08/24 08:00 Prednisone 20 Mg Tablet PO 07/12/24 08:01 DAILY@0800 [facility] Fluticasone/Salmeterol 2 puff 07/08/24 08:00 Fluticasone/Salmeterol 115-21 Mcg Inhaler 1 Puff INHALATION Q12HRT [facility] Radiology Results: ITS Impressions Chest/Abdomen/Pelvis CTA 07/07/24 10:28 IMPRESSION: 1. No evident pulmonary embolism. Sensitivity decreased in some of the smaller subsegmental pulmonary arteries due to motion artifact. 2. Moderate emphysema with left lower lobe pneumonia. 3. Moderate-sized sliding-type hiatal hernia. 4. Unchanged mild diffuse bladder wall thickening which may relate to chronic outlet obstruction. Labs Labs: Laboratory Results - last 24 hr 07/07/24 07/07/24 07/07/24 09:08 10:47 14:27 WBC 12.3 H RBC 4.69 Hgb 14.1 Hct 40.6 L MCV 86.6 MCH 30.1 MCHC 34.7 RDW 14.1 Plt Count 245 MPV 8.9 Immature Gran % (Auto) 0.3 Neut % (Auto) 83.1 H Lymph % (Auto) 7.8 L [place] % (Auto) 7.6 Eos % (Auto) 0.6 Baso % (Auto) 0.6 Lymph # (Auto) 0.96 [place] # (Auto) 0.9 H Eos # (Auto) 0.1 Baso # (Auto) 0.1 Abs Immat Gran (auto) 0.04 H Absolute Neuts (auto) 10.3 H Absolute Nucleated RBC 0.000 Nucleated RBC % 0.0 PT 13.4 INR 1.0 APTT 32.7 Sodium 136 L Potassium 4.9 Chloride 100 Carbon Dioxide 26 Anion Gap 10 BUN 10 Creatinine 1.02 Estim Creat Clear Calc 68 Estimated GFR > 60 Glucose 111 H Lactic Acid 1.7 Calcium 9.2 Total Bilirubin 1.2 AST 33 ALT 28 Alkaline Phosphatase 117 Troponin I < 0.012 Total Protein 8.0 Albumin 4.5 Lipase 108 Urine Color Yellow Urine Appearance Clear Urine pH 7.5 Ur Specific [place] 1.036 H Urine Protein Negative Urine Glucose (UA) Negative Urine Ketones Negative Ur Blood (Man) Non-hemolyzed trace Urine Nitrate Negative Urine Bilirubin Negative Urine Urobilinogen 0.2 Leukocyte Esterase Rfl 3+ H Nasal MRSA (PCR) Not detected Influenza A (RT-PCR) Negative Influenza B (RT-PCR) Negative RSV (RT-PCR) Negative SARS-CoV-2 RNA (RT-PCR) Negative 07/08/24 04:51 WBC 15.3 H RBC 4.45 L Hgb 13.2 L Hct 40.2 L MCV 90.3 MCH 29.7 MCHC 32.8 RDW 14.4 Plt Count 226 MPV 9.1 Immature Gran % (Auto) 0.5 Neut % (Auto) 83.8 H Lymph % (Auto) 9.0 L [place] % (Auto) 6.3 Eos % (Auto) 0.1 Baso % (Auto) 0.3 Lymph # (Auto) 1.38 [place] # (Auto) 1.0 H Eos # (Auto) 0.0 Baso # (Auto) 0.1 Abs Immat Gran (auto) 0.08 H Absolute Neuts (auto) 12.8 H Absolute Nucleated RBC 0.000 Nucleated RBC % 0.0 PT INR APTT Sodium 138 Potassium 3.9 Chloride 102 Carbon Dioxide 27 Anion Gap 9 BUN 10 Creatinine 0.99 Estim Creat Clear Calc 70 Estimated GFR > 60 Glucose 115 H Lactic Acid Calcium 8.8 Total Bilirubin AST ALT Alkaline Phosphatase Troponin I Total Protein Albumin Lipase Urine Color Urine Appearance Urine pH Ur Specific [place] Urine Protein Urine Glucose (UA) Urine Ketones Ur Blood (Man) Urine Nitrate Urine Bilirubin Urine Urobilinogen Leukocyte Esterase Rfl Nasal MRSA (PCR) Influenza A (RT-PCR) Influenza B (RT-PCR) RSV (RT-PCR) SARS-CoV-2 RNA (RT-PCR) Quality VTE Prophylaxis VTE prophylaxis: mechanical ordered
[2024-07-08] MEDS: FAMOTIDINE 20 MG TABLET PO ×2 (08:38→20:23)
[2024-07-08] MEDS: FOLIC ACID 1 MG TABLET PO (08:38)
[2024-07-08] MEDS: predniSONE 20 MG TABLET 40 MG PO (08:38)
[2024-07-08] MEDS: guaiFENesin 12 HR 600 MG TABCR PO ×2 (08:38→20:23)
[2024-07-08] MEDS: LORATADINE 10 MG TABLET PO (08:38)
[2024-07-08] MEDS: busPIRone HCL 10 MG TABLET PO ×2 (08:38→20:23)
[2024-07-08] MEDS: PANTOPRAZOLE 40 MG TABLET PO (08:38)
[2024-07-08] MEDS: GABAPENTIN 300 MG CAPSULE PO ×3 (08:38→16:08)
[2024-07-08] MEDS: FLUTICASONE PROPIONATE 0.05% NA SPR 16 GM BTL (*BKC) 1 SPRAY NASAL (08:39)
[2024-07-08] MEDS: amLODIPine BESYLATE 10 MG TABLET PO (08:39)
[2024-07-08] MEDS: FERROUS SULFATE 325 MG TABLET DR BY MOUTH (08:39)
[2024-07-08] MEDS: MAGNESIUM OXIDE 400 MG TABLET PO (08:39)
[2024-07-08] MEDS: MEMANTINE 10 MG TABLET PO ×2 (08:39→20:23)
[2024-07-08 09:54] LABS: Procalcitonin 1.4 ng/mL
[2024-07-08] MEDS: FLUTICASONE/SALMETEROL 115-21 MCG INHALER 1 PUFF 2 PUFF INHALATION ×2 (09:55→19:55)
[2024-07-08] MEDS: ACETAMINOPHEN 325 MG TABLET 650 MG PO (11:07)
[2024-07-08] MEDS: NICOTINE (*PBKC) 14 MG PATCH 1 PATCH TRANSDERM (11:08)
[2024-07-08] MEDS: AZITHROMYCIN 500 MG/NS 250 ML 500 MG/250 ML BAG 250 MG IVPB (11:09)
[2024-07-09] VITALS (13 sets, daily range): BP systolic 110–132; BP diastolic 64–71; PULSE 78–102; RESP 12–20; TEMP 35.9–36.8; O2SAT 95–98
--- NOTE | 2024-07-09 08:27 | PM.IMPN ---
Progress Note: A&P Assessment and Plan (1) Acute hypoxic respiratory failure: Code(s): J96.01 - Acute respiratory failure with hypoxia Status: Acute Assessment and Plan: Suspect acute hypoxic respiratory failure secondary to pneumonia. - CTA chest/abd/pelvis: 1. No evident pulmonary embolism. Sensitivity decreased in some of the smaller subsegmental pulmonary arteries due to motion artifact. 2. Moderate emphysema with left lower lobe pneumonia. 3. Moderate-sized sliding-type hiatal hernia. 4. Unchanged mild diffuse bladder wall thickening which may relate to chronic outlet obstruction. - viral PCR negative on 07/07, however multiple + covid cases within his facility. Placed on droplet isolation. - EKG, initial: Sinus tachycardia, rate 105, baseline artifact, borderline EKG. - initial troponin negative - currently requiring 1L NC to maintain O2 sat greater than 88%, wean as tolerated. Attempted to wean patient to RA was satting well at 95% during assessment, however per RN patient dropped to 88% and was placed back on 1L NC. Will continue to wean as tolerated. (2) Sepsis: Qualifiers: Sepsis acute organ dysfunction status: unspecified Sepsis type: sepsis due to unspecified organism Qualified Code(s): A41.9 - Sepsis, unspecified organism Code(s): A41.9 - Sepsis, unspecified organism Status: Acute Assessment and Plan: - meets SIRS criteria: HR 120, fever 102.9, WBC 12.3. +hypoxia, no hypotension. - lactic acid: 1.7 - 30 mL/kg = 2.7L, given 2L bolus. monitor toleration. - suspected source: LLL PNA - started on ceftriaxone and azithromycin on 07/07 - blood cultures drawn on 07/07: NGTD - UA: 1.036, 3+ leuks. Mild diffuse bladder wall thickening on CT, may be related to chronic outlet obstruction. No previous micro available for review. Urine culture pending, follow. - monitor hemodynamic stability WBC remains slightly. Hemodynamically stable. (3) Left lower lobe pneumonia: Qualifiers: Pneumonia type: due to unspecified organism Qualified Code(s): J18.9 - Pneumonia, unspecified organism Code(s): J18.9 - Pneumonia, unspecified organism Status: Acute Assessment and Plan: - risk factors and complicating factors: High suspicion for recent exposure to COVID, [facility] resident, sepsis - CTA chest/abd/pelvis: 1. No evident pulmonary embolism. Sensitivity decreased in some of the smaller subsegmental pulmonary arteries due to motion artifact. 2. Moderate emphysema with left lower lobe pneumonia. 3. Moderate-sized sliding-type hiatal hernia. 4. Unchanged mild diffuse bladder wall thickening which may relate to chronic outlet obstruction. - viral PCR negative on 07/07, however multiple + covid cases within his facility. Placed on droplet isolation. - MRSA negative - Sputum cultures: preliminary - growing lower respiratory tract specimen - started on CAP tx: azithromycin ceftriaxone on 07/07, transition to orals prior to discharge - Consider ordering legionella, mycoplasma and pneumococcal - Requiring 1L NC (baseline room air), wean as tolerated for spo2 > 88% for cocurrent COPD - Monitor vital signs, I&Os, neuro status and patient is a fall risk - Follow WBC, serum electrolytes, temperature curves and cultures (4) COPD (chronic obstructive pulmonary disease): Qualifiers: COPD type: emphysema Emphysema type: unspecified Qualified Code(s): J43.9 - Emphysema, unspecified Code(s): J44.9 - Chronic obstructive pulmonary disease, unspecified Status: Acute Assessment and Plan: Slight expiratory wheezes on auscultation has resolved. - DuoNeb p.r.n. - prednisone 40 mg x 5 days (5) Close exposure to COVID-19 virus: Code(s): Z20.822 - Contact with and (suspected) exposure to COVID-19 Status: Acute Assessment and Plan: - PCR negative on 07/07 - placed on droplet precautions Plan Diet: Heart healthy GI Prophylaxis: Not currently indicated DVT Prophylaxis: SCD Lines: Peripheral Code Status: Full code Time Spent With Patient Time with patient: 25 - 35 minutes Subjective Date/time seen: 07/09/24 08:27 Interval history: 64 y/o M with PMH of Wernicke's encephalopathy, dementia, and COPD with nausea, vomiting, and fever. Patient is pleasant sitting up comfortably in his chair. He states that his shortness of breath has resolved however he remains on 1 L nasal cannula. Attempted to wean patient during assessment and was able to wean him back to room air for a time however received a call from RN stating that patient again desatted into the upper 80s and was placed back on 1 L. patient continues to endorse a productive cough but notes that this is improved since admission. He has no other complaints denying chest pain, palpitations, nausea/vomiting, abdominal pain. Review of Systems Review of Systems: All systems reviewed & are unremarkable except as noted in HPI and below Exam Narrative: AF HR 85 RR 14 Spo2 95 RA BP 110/64 General: male in no acute respiratory distress who is nontoxic appearing, sitting in chair . HEENT: Normocephalic. Atraumatic. Extraocular movement intact. Sclera clear and anicteric. No facial asymmetry. Chest: Lungs are coarse to auscultation of the LLL base,clear to the right, and no expiratory wheezes noted. CV: Heart was regular rate and rhythm. Telemetry checked, remains normal sinus. Abd: Abdomen was soft. Nontender. Nondistended. Positive bowel sounds. Ext: No clubbing, cyanosis, or edema. DP pulses bilaterally. Neuro: Patient is alert. Speech is clear. Objective Data Vital Signs Vital Signs: Vital Signs - 24 hr 07/08/24 12:00 07/08/24 13:40 07/08/24 14:00 Temperature 98.3 F Pulse Rate 103 H 94 Respiratory Rate 18 Blood Pressure 116/52 L Pulse Oximetry 91 Oxygen Delivery Nasal Cannula Oxygen Flow Rate 2 07/08/24 14:32 07/08/24 16:00 07/08/24 20:00 Temperature Pulse Rate 94 Respiratory Rate Blood Pressure Pulse Oximetry 91 91 Oxygen Delivery Nasal Cannula Nasal Cannula Oxygen Flow Rate 2 2 07/08/24 20:00 07/08/24 20:04 07/08/24 20:04 Temperature Pulse Rate 91 96 96 Respiratory Rate 22 H 20 Blood Pressure Pulse Oximetry 94 Oxygen Delivery Nasal Cannula Oxygen Flow Rate 2 07/08/24 20:11 07/09/24 00:00 07/09/24 04:00 Temperature 98.1 F Pulse Rate 93 85 82 Respiratory Rate 20 Blood Pressure 121/82 Pulse Oximetry 91 Oxygen Delivery Oxygen Flow Rate 07/09/24 04:44 07/09/24 08:21 Temperature 98 F 96.6 F L Pulse Rate 89 78 Respiratory Rate 18 16 Blood Pressure 132/71 130/68 Pulse Oximetry 96 97 Oxygen Delivery Oxygen Flow Rate Intake/Output Intake/Output: Intake & Output 07/06/24 07/07/24 07/08/24 07/09/24 23:59 23:59 23:59 23:59 Intake Total 2540 1030 150 Output Total 950 650 Balance 1590 380 150 Meds/Results Medications: Active Medications Generic Name Dose Route Start Last Admin Trade Name Freq PRN Reason Stop Dose Admin Acetaminophen 650 mg 07/07/24 12:25 07/08/24 11:07 Acetaminophen 325 Mg Tablet PO 650 mg Q4H PRN Administration Mild Pain (1-3) or Fever Albuterol/Ipratropium 3 ml 07/07/24 14:18 Ipratropium 0.5 Mg/Albuterol Sulfate 2.5 Mg Ampul.Neb 3 Ml INHALATION Q6HRT PRN Shortness Of Breath Or Wheezing Amlodipine Besylate 10 mg 07/08/24 09:00 07/08/24 08:39 Amlodipine Besylate 10 Mg Tablet PO 10 mg DAILY DANA Administration Artificial Tears 1 drop 07/07/24 21:11 Artificial Tears Ophth Soln 15 Ml Bottle EACH EYE Q12HR PRN dry eye(s) Benzonatate 100 mg 07/07/24 13:54 Benzonatate 100 Mg Capsule PO TID PRN Cough Buspirone HCl 10 mg 07/07/24 21:20 07/08/24 20:23 Buspirone Hcl 10 Mg Tablet PO 10 mg Q12HR DANA Administration Famotidine 20 mg 07/08/24 09:00 07/08/24 20:23 Famotidine 20 Mg Tablet PO 20 mg Q12HR DANA Administration Ferrous Sulfate 325 mg 07/08/24 09:00 07/08/24 08:39 Ferrous Sulfate [address] BY MOUTH 325 mg DAILY DANA Administration Fluticasone Propionate 1 spray 07/08/24 09:00 07/08/24 08:39 Fluticasone Propionate 0.05% Na Spr 16 Gm Btl (*Bkc) NASAL 1 spray DAILY DANA Administration Folic Acid 1 mg 07/08/24 09:00 07/08/24 08:38 Folic Acid 1 Mg Tablet PO 1 mg DAILY DANA Administration Gabapentin 300 mg 07/08/24 09:00 07/08/24 16:08 Gabapentin 300 Mg Capsule PO 300 mg TID DANA Administration Guaifenesin 600 mg 07/07/24 21:00 07/08/24 20:23 Guaifenesin 12 Hr 600 Mg Tabcr PO 600 mg Q12HR DANA Administration Ceftriaxone Sodium 1 gm in 50 mls @ 100 mls/hr 07/08/24 12:00 07/08/24 11:39 Rocephin 1 Gm/Ns 50 Ml IVPB Infused Q24H DANA Infusion Azithromycin 500 mg in 250 mls @ 250 mls/hr 07/08/24 12:00 07/08/24 12:09 Zithromax IVPB Infused Q24H DANA Infusion Loratadine 10 mg 07/08/24 09:00 07/08/24 08:38 Loratadine 10 Mg Tablet PO 10 mg QAM DANA Administration Magnesium Oxide 400 mg 07/08/24 09:00 07/08/24 08:39 Magnesium Oxide 400 Mg Tablet PO 400 mg DAILY DANA Administration Meclizine HCl 25 mg 07/07/24 21:11 Meclizine Hcl 25 Mg Tablet PO Q8H PRN dizziness Memantine 10 mg 07/07/24 21:20 07/08/24 20:23 Memantine 10 Mg Tablet PO 10 mg Q12HR DANA Administration Nicotine 1 patch 07/07/24 21:11 07/08/24 11:08 Nicotine (*[place]) 14 Mg Patch TRANSDERM 1 patch DAILY PRN Administration withdrawal symptoms Ondansetron HCl 4 mg 07/07/24 20:00 07/08/24 04:46 Ondansetron Inj 4 Mg/2 Ml Vial IV PUSH 4 mg Q6H PRN Administration Nausea And Vomiting Pantoprazole Sodium 40 mg 07/08/24 09:00 07/08/24 08:38 Pantoprazole 40 Mg Tablet PO 40 mg QAM DANA Administration Prednisone 40 mg 07/08/24 08:00 07/08/24 08:38 Prednisone 20 Mg Tablet PO 07/12/24 08:01 40 mg DAILY@0800 DANA Administration Fluticasone/Salmeterol 2 puff 07/08/24 08:00 07/09/24 08:27 Fluticasone/Salmeterol 115-21 Mcg Inhaler 1 Puff INHALATION 2 puff Q12HRT DANA Administration Radiology Results: ITS Impressions Chest/Abdomen/Pelvis CTA 07/07/24 10:28 IMPRESSION: 1. No evident pulmonary embolism. Sensitivity decreased in some of the smaller subsegmental pulmonary arteries due to motion artifact. 2. Moderate emphysema with left lower lobe pneumonia. 3. Moderate-sized sliding-type hiatal hernia. 4. Unchanged mild diffuse bladder wall thickening which may relate to chronic outlet obstruction. Labs Labs: Laboratory Results - last 24 hr 07/08/24 08:22 Procalcitonin 1.4 Quality VTE Prophylaxis VTE prophylaxis: mechanical ordered
[2024-07-09 08:46] LABS: Hematocrit 38.2 % (42.0-52.0); Hemoglobin 12.6 g/dL (14.0-18.0); Mean Corpuscular Hemoglobin 30.1 pg (26-34); Mean Corpuscular Volume 91.4 fl (80-100); Mean Platelet Volume 9.1 fl (7.4-10.4); Platelet Count Result 233 k/mm3 (150-375); Red Blood Count 4.18 M/mm3 (4.6-6.20); Red Cell Distribution Width 14.3 % (11.5-14.5); White Blood Count 12.9 K/mm3 (4.5-10.0)
[2024-07-09 08:57] LABS: Alanine Aminotransferase 22 U/L (6-50); Albumin Level 4.4 g/dL (3.5-5.1); Alkaline Phosphatase 94 U/L (38-126); Anion Gap 9 mmol/L (4-12); Aspartate Amino Transferase 21 U/L (17-59); Bilirubin,Total 0.7 mg/dL (0.2-1.3); Blood Urea Nitrogen 10 mg/dL (9-20); Carbon Dioxide 31 mmol/L (22-30); Chloride 101 mmol/L (98-107); Estimated CRCL calculation 74 ml/min; Estimated Glomerular Filt Rate > 60; Glucose 105 mg/dL (65-110); Potassium 3.6 mmol/L (3.4-5.0); Sodium 141 mmol/L (137-145)
[2024-07-09] MEDS: predniSONE 20 MG TABLET 40 MG PO (09:05)
[2024-07-09] MEDS: FLUTICASONE/SALMETEROL 115-21 MCG INHALER 1 PUFF 2 PUFF INHALATION ×2 (09:48→20:27)
[2024-07-09] MEDS: MEMANTINE 10 MG TABLET PO ×2 (10:28→20:33)
[2024-07-09] MEDS: guaiFENesin 12 HR 600 MG TABCR PO ×2 (10:30→20:33)
[2024-07-09] MEDS: busPIRone HCL 10 MG TABLET PO ×2 (10:31→20:33)
[2024-07-09] MEDS: PANTOPRAZOLE 40 MG TABLET PO (11:00)
[2024-07-09] MEDS: amLODIPine BESYLATE 10 MG TABLET PO (11:00)
[2024-07-09] MEDS: LORATADINE 10 MG TABLET PO (11:01)
[2024-07-09] MEDS: FOLIC ACID 1 MG TABLET PO (11:01)
[2024-07-09] MEDS: FAMOTIDINE 20 MG TABLET PO ×2 (11:01→20:34)
[2024-07-09] MEDS: GABAPENTIN 300 MG CAPSULE PO ×3 (11:01→16:32)
[2024-07-09] MEDS: FERROUS SULFATE 325 MG TABLET DR BY MOUTH (11:01)
[2024-07-09] MEDS: MAGNESIUM OXIDE 400 MG TABLET PO (11:01)
[2024-07-09] MEDS: FLUTICASONE PROPIONATE 0.05% NA SPR 16 GM BTL (*BKC) 1 SPRAY NASAL (11:02)
[2024-07-09] MEDS: AZITHROMYCIN 500 MG/NS 250 ML 500 MG/250 ML BAG 250 MG IVPB (13:32)
[2024-07-09] MEDS: NICOTINE (*PBKC) 14 MG PATCH 1 PATCH TRANSDERM (15:45)
[2024-07-10] VITALS: PULSE 85
[2024-07-10 04:00] VITALS: PULSE 75
[2024-07-10 05:02] VITALS: BP 142/72; PULSE 90; RESP 16; TEMP 36.8; O2SAT 90
[2024-07-10 05:38] LABS: Hematocrit 37.5 % (42.0-52.0); Hemoglobin 12.4 g/dL (14.0-18.0); Mean Corpuscular HGB Conc 33.1 g/dl (32-36); Mean Corpuscular Hemoglobin 29.7 pg (26-34); Mean Corpuscular Volume 89.7 fl (80-100); Mean Platelet Volume 8.9 fl (7.4-10.4); Platelet Count Result 261 k/mm3 (150-375); Red Blood Count 4.18 M/mm3 (4.6-6.20); Red Cell Distribution Width 14.3 % (11.5-14.5)
[2024-07-10 05:49] LABS: Alanine Aminotransferase 22 U/L (6-50); Albumin Level 4.1 g/dL (3.5-5.1); Alkaline Phosphatase 86 U/L (38-126); Anion Gap 8 mmol/L (4-12); Aspartate Amino Transferase 21 U/L (17-59); Bilirubin,Total 0.5 mg/dL (0.2-1.3); Blood Urea Nitrogen 9 mg/dL (9-20); Calcium 8.8 mg/dL (8.4-10.2); Carbon Dioxide 31 mmol/L (22-30); Chloride 103 mmol/L (98-107); Estimated CRCL calculation 79 ml/min; Estimated Glomerular Filt Rate > 60; Glucose 96 mg/dL (65-110); Potassium 3.5 mmol/L (3.4-5.0); Sodium 142 mmol/L (137-145)
--- NOTE | 2024-07-10 07:35 | PM.IMPN ---
Progress Note: A&P Assessment and Plan (1) Acute hypoxic respiratory failure: Code(s): J96.01 - Acute respiratory failure with hypoxia Status: Acute Assessment and Plan: Suspect acute hypoxic respiratory failure secondary to pneumonia. - CTA chest/abd/pelvis: 1. No evident pulmonary embolism. Sensitivity decreased in some of the smaller subsegmental pulmonary arteries due to motion artifact. 2. Moderate emphysema with left lower lobe pneumonia. 3. Moderate-sized sliding-type hiatal hernia. 4. Unchanged mild diffuse bladder wall thickening which may relate to chronic outlet obstruction. - viral PCR negative on 07/07, however multiple + covid cases within his facility. Placed on droplet isolation. - EKG, initial: Sinus tachycardia, rate 105, baseline artifact, borderline EKG. - initial troponin negative - currently requiring 1L NC to maintain O2 sat greater than 88%, wean as tolerated. Attempted to wean patient to RA was satting well at 95% during assessment, however per RN patient dropped to 88% and was placed back on 1L NC. Will continue to wean as tolerated. (2) Sepsis: Qualifiers: Sepsis acute organ dysfunction status: unspecified Sepsis type: sepsis due to unspecified organism Qualified Code(s): A41.9 - Sepsis, unspecified organism Code(s): A41.9 - Sepsis, unspecified organism Status: Acute Assessment and Plan: - meets SIRS criteria: HR 120, fever 102.9, WBC 12.3. +hypoxia, no hypotension. - lactic acid: 1.7 - 30 mL/kg = 2.7L, given 2L bolus. monitor toleration. - suspected source: LLL PNA - started on ceftriaxone and azithromycin on 07/07 - blood cultures drawn on 07/07: NGTD - UA: 1.036, 3+ leuks. Mild diffuse bladder wall thickening on CT, may be related to chronic outlet obstruction. No previous micro available for review. Urine culture pending, follow. - monitor hemodynamic stability WBC remains slightly. Hemodynamically stable. (3) Left lower lobe pneumonia: Qualifiers: Pneumonia type: due to unspecified organism Qualified Code(s): J18.9 - Pneumonia, unspecified organism Code(s): J18.9 - Pneumonia, unspecified organism Status: Acute Assessment and Plan: - risk factors and complicating factors: High suspicion for recent exposure to COVID, retirement resident, sepsis - CTA chest/abd/pelvis: 1. No evident pulmonary embolism. Sensitivity decreased in some of the smaller subsegmental pulmonary arteries due to motion artifact. 2. Moderate emphysema with left lower lobe pneumonia. 3. Moderate-sized sliding-type hiatal hernia. 4. Unchanged mild diffuse bladder wall thickening which may relate to chronic outlet obstruction. - viral PCR negative on 07/07, however multiple + covid cases within his facility. Placed on droplet isolation. - MRSA negative - Sputum cultures: preliminary - growing lower respiratory tract specimen - started on CAP tx: azithromycin ceftriaxone on 07/07, transition to orals prior to discharge - Consider ordering legionella, mycoplasma and pneumococcal - Requiring 1L NC (baseline room air), wean as tolerated for spo2 > 88% for cocurrent COPD - Monitor vital signs, I&Os, neuro status and patient is a fall risk - Follow WBC, serum electrolytes, temperature curves and cultures (4) COPD (chronic obstructive pulmonary disease): Qualifiers: COPD type: emphysema Emphysema type: unspecified Qualified Code(s): J43.9 - Emphysema, unspecified Code(s): J44.9 - Chronic obstructive pulmonary disease, unspecified Status: Acute Assessment and Plan: Slight expiratory wheezes on auscultation has resolved. - DuoNeb p.r.n. - prednisone 40 mg x 5 days (5) Close exposure to COVID-19 virus: Code(s): Z20.822 - Contact with and (suspected) exposure to COVID-19 Status: Acute Assessment and Plan: - PCR negative on 07/07 - placed on droplet precautions Plan Diet: Heart healthy GI Prophylaxis: Not currently indicated DVT Prophylaxis: SCD Lines: Peripheral Code Status: Full code Subjective Date/time seen: 07/10/24 07:35 Interval history: 64 y/o M with PMH of Wernicke's encephalopathy, dementia, and COPD with nausea, vomiting, and fever. Review of Systems Review of Systems: All systems reviewed & are unremarkable except as noted in HPI and below Exam Narrative: AF HR General: male in no acute respiratory distress who is nontoxic appearing, sitting in chair . HEENT: Normocephalic. Atraumatic. Extraocular movement intact. Sclera clear and anicteric. No facial asymmetry. Chest: Lungs are coarse to auscultation of the LLL base,clear to the right, and no expiratory wheezes noted. CV: Heart was regular rate and rhythm. Telemetry checked, remains normal sinus. Abd: Abdomen was soft. Nontender. Nondistended. Positive bowel sounds. Ext: No clubbing, cyanosis, or edema. DP pulses bilaterally. Neuro: Patient is alert. Speech is clear. Objective Data Vital Signs Vital Signs: Vital Signs - 24 hr 07/09/24 08:00 07/09/24 08:21 07/09/24 11:08 Temperature 96.6 F L 98.2 F Pulse Rate 84 78 84 Respiratory Rate 16 14 Blood Pressure 130/68 110/64 Pulse Oximetry 97 95 Oxygen Delivery Oxygen Flow Rate 07/09/24 11:11 07/09/24 12:00 07/09/24 14:00 Temperature 97.4 F L Pulse Rate 85 88 93 Respiratory Rate 14 16 Blood Pressure 127/69 Pulse Oximetry 95 95 Oxygen Delivery Room Air Oxygen Flow Rate 07/09/24 16:00 07/09/24 19:59 07/09/24 20:00 Temperature 97.2 F L Pulse Rate 102 H 89 Respiratory Rate 12 Blood Pressure 129/71 Pulse Oximetry 98 95 Oxygen Delivery Nasal Cannula Oxygen Flow Rate 1 07/09/24 20:00 07/09/24 20:31 07/10/24 00:00 Temperature Pulse Rate 89 93 85 Respiratory Rate 20 Blood Pressure Pulse Oximetry Oxygen Delivery Oxygen Flow Rate 07/10/24 04:00 07/10/24 05:02 Temperature 98.3 F Pulse Rate 75 90 Respiratory Rate 16 Blood Pressure 142/72 H Pulse Oximetry 90 Oxygen Delivery Oxygen Flow Rate Intake/Output Intake/Output: Intake & Output 07/07/24 07/08/24 07/09/24 07/10/24 23:59 23:59 23:59 23:59 Intake Total 2540 1030 1650 300 Output Total 950 650 Balance 2099 632 4108 300 Meds/Results Medications: Active Medications Generic Name Dose Route Start Last Admin Trade Name Freq PRN Reason Stop Dose Admin Acetaminophen 650 mg 07/07/24 12:25 07/08/24 11:07 Acetaminophen 325 Mg Tablet PO 650 mg Q4H PRN Administration Mild Pain (1-3) or Fever Albuterol/Ipratropium 3 ml 07/07/24 14:18 Ipratropium 0.5 Mg/Albuterol Sulfate 2.5 Mg Ampul.Neb 3 Ml INHALATION Q6HRT PRN Shortness Of Breath Or Wheezing Amlodipine Besylate 10 mg 07/08/24 09:00 07/09/24 11:00 Amlodipine Besylate 10 Mg Tablet PO 10 mg DAILY DANA Administration Artificial Tears 1 drop 07/07/24 21:11 Artificial Tears Ophth Soln 15 Ml Bottle EACH EYE Q12HR PRN dry eye(s) Benzonatate 100 mg 07/07/24 13:54 Benzonatate 100 Mg Capsule PO TID PRN Cough Buspirone HCl 10 mg 07/07/24 21:20 07/09/24 20:33 Buspirone Hcl 10 Mg Tablet PO 10 mg Q12HR DANA Administration Famotidine 20 mg 07/08/24 09:00 07/09/24 20:34 Famotidine 20 Mg Tablet PO 20 mg Q12HR DANA Administration Ferrous Sulfate 325 mg 07/08/24 09:00 07/09/24 11:01 Ferrous Sulfate [address] BY MOUTH 325 mg DAILY DANA Administration Fluticasone Propionate 1 spray 07/08/24 09:00 07/09/24 11:02 Fluticasone Propionate 0.05% Na Spr 16 Gm Btl (*Bkc) NASAL 1 spray DAILY DANA Administration Folic Acid 1 mg 07/08/24 09:00 07/09/24 11:01 Folic Acid 1 Mg Tablet PO 1 mg DAILY DANA Administration Gabapentin 300 mg 07/08/24 09:00 07/09/24 16:32 Gabapentin 300 Mg Capsule PO 300 mg TID DANA Administration Guaifenesin 600 mg 07/07/24 21:00 07/09/24 20:33 Guaifenesin 12 Hr 600 Mg Tabcr PO 600 mg Q12HR DANA Administration Ceftriaxone Sodium 1 gm in 50 mls @ 100 mls/hr 07/08/24 12:00 07/09/24 13:31 Rocephin 1 Gm/Ns 50 Ml IVPB Infused Q24H DANA Infusion Azithromycin 500 mg in 250 mls @ 250 mls/hr 07/08/24 12:00 07/09/24 14:32 Zithromax IVPB Infused Q24H DANA Infusion Loratadine 10 mg 07/08/24 09:00 07/09/24 11:01 Loratadine 10 Mg Tablet PO 10 mg QAM DANA Administration Magnesium Oxide 400 mg 07/08/24 09:00 07/09/24 11:01 Magnesium Oxide 400 Mg Tablet PO 400 mg DAILY DANA Administration Meclizine HCl 25 mg 07/07/24 21:11 Meclizine Hcl 25 Mg Tablet PO Q8H PRN dizziness Memantine 10 mg 07/07/24 21:20 07/09/24 20:33 Memantine 10 Mg Tablet PO 10 mg Q12HR DANA Administration Nicotine 1 patch 07/07/24 21:11 07/09/24 15:45 Nicotine (*Pbkc) 14 Mg Patch TRANSDERM 1 patch DAILY PRN Administration withdrawal symptoms Ondansetron HCl 4 mg 07/07/24 20:00 07/08/24 04:46 Ondansetron Inj 4 Mg/2 Ml Vial IV PUSH 4 mg Q6H PRN Administration Nausea And Vomiting Pantoprazole Sodium 40 mg 07/08/24 09:00 07/09/24 11:00 Pantoprazole 40 Mg Tablet PO 40 mg QAM DANA Administration Prednisone 40 mg 07/08/24 08:00 07/09/24 09:05 Prednisone 20 Mg Tablet PO 07/12/24 08:01 40 mg DAILY@0800 DANA Administration Fluticasone/Salmeterol 2 puff 07/08/24 08:00 07/09/24 20:27 Fluticasone/Salmeterol 115-21 Mcg Inhaler 1 Puff INHALATION 2 puff Q12HRT DANA Administration Radiology Results: ITS Impressions Chest/Abdomen/Pelvis CTA 07/07/24 10:28 IMPRESSION: 1. No evident pulmonary embolism. Sensitivity decreased in some of the smaller subsegmental pulmonary arteries due to motion artifact. 2. Moderate emphysema with left lower lobe pneumonia. 3. Moderate-sized sliding-type hiatal hernia. 4. Unchanged mild diffuse bladder wall thickening which may relate to chronic outlet obstruction. Labs Labs: Laboratory Results - last 24 hr 07/09/24 07/10/24 08:39 05:18 WBC 12.9 H 11.0 H RBC 4.18 L 4.18 L Hgb 12.6 L 12.4 L Hct 38.2 L 37.5 L MCV 91.4 89.7 MCH 30.1 29.7 MCHC 33.0 33.1 RDW 14.3 14.3 Plt Count 233 261 MPV 9.1 8.9 Sodium 141 142 Potassium 3.6 3.5 Chloride 101 103 Carbon Dioxide 31 H 31 H Anion Gap 9 8 BUN 10 9 Creatinine 0.93 0.86 Estim Creat Clear Calc 74 79 Estimated GFR > 60 > 60 Glucose 105 96 Calcium 9.0 8.8 Total Bilirubin 0.7 0.5 AST 21 21 ALT 22 22 Alkaline Phosphatase 94 86 Total Protein 8.0 7.0 Albumin 4.4 4.1 Quality VTE Prophylaxis VTE prophylaxis: mechanical ordered
[2024-07-10 08:00] VITALS: PULSE 91
[2024-07-10 08:08] VITALS: PULSE 90; RESP 20; O2SAT 95
[2024-07-10] MEDS: FLUTICASONE/SALMETEROL 115-21 MCG INHALER 1 PUFF 2 PUFF INHALATION (08:08)
[2024-07-10] MEDS: NICOTINE (*PBKC) 14 MG PATCH 1 PATCH TRANSDERM (08:09)
[2024-07-10] MEDS: guaiFENesin 12 HR 600 MG TABCR PO (08:10)
[2024-07-10] MEDS: GABAPENTIN 300 MG CAPSULE PO (08:10)
[2024-07-10] MEDS: FOLIC ACID 1 MG TABLET PO (08:10)
[2024-07-10] MEDS: busPIRone HCL 10 MG TABLET PO (08:10)
[2024-07-10] MEDS: MEMANTINE 10 MG TABLET PO (08:10)
[2024-07-10] MEDS: PANTOPRAZOLE 40 MG TABLET PO (08:10)
[2024-07-10] MEDS: FLUTICASONE PROPIONATE 0.05% NA SPR 16 GM BTL (*BKC) 1 SPRAY NASAL (08:10)
[2024-07-10] MEDS: predniSONE 20 MG TABLET 40 MG PO (08:10)
[2024-07-10] MEDS: amLODIPine BESYLATE 10 MG TABLET PO (08:10)
[2024-07-10] MEDS: FERROUS SULFATE 325 MG TABLET DR BY MOUTH (08:11)
[2024-07-10] MEDS: LORATADINE 10 MG TABLET PO (08:11)
[2024-07-10] MEDS: FAMOTIDINE 20 MG TABLET PO (08:11)
[2024-07-10] MEDS: MAGNESIUM OXIDE 400 MG TABLET PO (08:11)
--- NOTE | 2024-07-10 10:58 | P.DS_ITS ---
DS: Admitting Diagnosis Discharge Date 07/10/2024 Admitting Diagnosis Acute hypoxic respiratory failure Sepsis Pneumonia COPD Close covid exposure DS: Discharge Diagnosis Discharge Diagnosis (1) Acute hypoxic respiratory failure: Code(s): J96.01 - Acute respiratory failure with hypoxia Status: Acute (2) Sepsis: Qualifiers: Sepsis acute organ dysfunction status: unspecified Sepsis type: sepsis due to unspecified organism Qualified Code(s): A41.9 - Sepsis, unspecified organism Code(s): A41.9 - Sepsis, unspecified organism Status: Acute (3) Left lower lobe pneumonia: Qualifiers: Pneumonia type: due to unspecified organism Qualified Code(s): J18.9 - Pneumonia, unspecified organism Code(s): J18.9 - Pneumonia, unspecified organism Status: Acute (4) COPD (chronic obstructive pulmonary disease): Qualifiers: COPD type: emphysema Emphysema type: unspecified Qualified Code(s): J43.9 - Emphysema, unspecified Code(s): J44.9 - Chronic obstructive pulmonary disease, unspecified Status: Acute (5) Close exposure to COVID-19 virus: Code(s): Z20.822 - Contact with and (suspected) exposure to COVID-19 Status: Acute DS: Summary Hospital Course Reason for hospitalization: Acute hypoxic respiratory failure Sepsis Pneumonia COPD Close covid exposure Hospital Course: 64 year old male with past medical history of Wernicke's encephalopathy, dementia, and COPD with nausea, vomiting, and fever. Patient meeting sepsis criteria on admission with tachycardia, fever, and leukocytosis. Received sepsis bolus in the ED. Blood cultures obtained and show NGTD. On admission patient was in acute hypoxic respiratory failure requiring supplemental oxygen. Suspected source of sepsis and hypoxia being pneumonia as seen on imaging. CTA chest/abd/pelvis showing no pulmonary embolism and moderate emphysema with left lower lobe pneumonia. Viral panel negative, however at recent exposure to covid per NH. Placed on precautions and started on IV antibiotics. Patient has cocurrent COPD and noted expiratory wheezing on admission. Placed on prednisone as well. Prior to discharge patients sepsis had resolved and he was weaned back to room air. Patient has no complaints at time of discharge denying chest pain, palpitations, shortness of breath, nausea/vomiting and abdominal pain. [facility]. He is to complete his antibiotic course as prescribed and follow-up with his primary care provider in 1 week. Status at Discharge Functional status at discharge: uses cane/walker Time Spent with Patient Time attestation: Total time spent providing and/or coordinating discharge services: Time spent: Greater than 30 minutes Exam Narrative: AF HR 90 RR 20 SpO2 95 RA BP 142/72 General: male in no acute respiratory distress who is nontoxic appearing, sitting in chair . HEENT: Normocephalic. Atraumatic. Extraocular movement intact. Sclera clear and anicteric. No facial asymmetry. Chest: Lungs are slightly diminished to auscultation of the LLL base,clear to the right throughout, and no expiratory wheezes noted. CV: Heart was regular rate and rhythm. Telemetry checked, remains normal sinus. Abd: Abdomen was soft. Nontender. Nondistended. Positive bowel sounds. Ext: No clubbing, cyanosis, or edema. DP pulses bilaterally. Neuro: Patient is alert. Speech is clear. DS: Data Data Completed and Pending Completed studies during hospitalization: Chest/abdomen/pelvis CTA Labs on day of discharge: Labs from last 24 hours 07/10/24 05:18 WBC 11.0 H RBC 4.18 L Hgb 12.4 L Hct 37.5 L MCV 89.7 MCH 29.7 MCHC 33.1 RDW 14.3 Plt Count 261 MPV 8.9 Sodium 142 Potassium 3.5 Chloride 103 Carbon Dioxide 31 H Anion Gap 8 BUN 9 Creatinine 0.86 Estim Creat Clear Calc 79 Estimated GFR > 60 Glucose 96 Calcium 8.8 Total Bilirubin 0.5 AST 21 ALT 22 Alkaline Phosphatase 86 Total Protein 7.0 Albumin 4.1 Preliminary micro results at discharge 07/07/24 09:46 Blood Culture - Preliminary Blood 07/07/24 09:46 Blood Culture - Preliminary Blood Discharge Plan Discharge Attending physician on discharge: Matthew Zabala Discharging Clinician: Marysol Stephenson Anticipated Discharge Date/Time: 07/10/24 10:57 Patient Disposition: [facility] Activity: as tolerated Diet: as tolerated and regular Discharge Instructions: Discharge disposition: Patient admitted to the hospital for pneumonia with new oxygen requirement Weaned back to room air prior to discharge Take medications as prescribed Augmentin twice a day starting tonight Azithromycin daily starting tomorrow Antibiotic course to be completed on 07/13 Prednisone given for cocurrent COPD, course to be completed 07/12. Attached is information on these medications Monitor blood pressures Take caution while standing, rising, or moving Change positions slowly taking a break between each position change If you standing feel dizzy sit back down and take a break Encouraged to continue with yearly vaccinations Return to the emergency department if he developed sudden shortness of breath, chest pain, nausea, vomiting, upset stomach or intractable diarrhea Return to the emergency department if you develop fever greater than 101.5 Follow-up with the primary care physician within 1-2 weeks Thank you for [facility] for your healthcare needs Patient Instructions: Antibiotic Form, Prednisone (By mouth), Amoxicillin/Clavulanate Potassium (By mouth), Azithromycin (By mouth), Pneumonia (DC) Patient Language: Japanese Stand Alone Forms: General Discharge Information Follow-up/Referrals: Geeta,MD Jae [Primary Care Provider] - 1 Week Discharge Medications: New prednisone 20 mg Tablet 40 mg PO DAILY@0800 Qty: 2 0RF azithromycin [Zithromax] 250 mg Tablet 500 mg PO DAILY Qty: 3 0RF amoxicillin-pot clavulanate 875-125 mg tablet 1 tablet PO Q12H Qty: 7 0RF Continued acetaminophen 325 mg capsule 325 mg PO Q6H PRN (Reason: pain) albuterol sulfate 90 mcg/actuation aerosol powdr breath activated 2 inh inhalation Q4-6H PRN (Reason: shortness of breath) amlodipine 10 mg tablet 10 mg PO DAILY budesonide-formoterol [Breyna] 160-4.5 mcg/actuation HFA aerosol inhaler 2 inh inhalation Q12H buspirone 10 mg tablet 10 mg PO BID cetirizine [All Day Allergy (cetirizine)] 10 mg tablet 10 mg PO DAILY multivitamin,[id number]-min Tablet 1 tablet PO DAILY famotidine [Acid Golf Coach (famotidine)] 20 mg tablet 20 mg PO BID ferrous sulfate [Feosol] 325 mg (65 mg iron) tablet 325 mg PO DAILY fluticasone propionate [Allergy Relief (fluticasone)] 50 mcg/actuation spray,suspension 1 spray intranasal DAILY Rx Instructions: administer into each nostril folic acid 1 mg tablet 1 mg PO DAILY gabapentin 300 mg capsule 300 mg PO TID Lubricant (a-utphuf-sjmrrhpa) 1-0.3 % drops 1 drp EACH EYE BID PRN (Reason: dry eye(s)) magnesium oxide 400 mg magnesium capsule 400 mg PO DAILY meclizine 25 mg tablet 25 mg PO Q8H PRN (Reason: dizziness) memantine [Namenda] 10 mg tablet 10 mg PO BID nicotine 14 mg/24 hr patch 24 hour 1 patch transdermal DAILY PRN (Reason: withdrawal symptoms) omeprazole 20 mg capsule,delayed release(DR/EC) 20 mg PO DAILY Date of admission: 07/07/24 13:00 Primary Care Provider: LylaJae Admitting Provider: Kenya Metz Attending physician on admission: Marysol Stephenson Condition: Stable Hospitalist MIPS Heart Failure (Exclusion) Patient has history of Heart Transplant or Left Ventricular Assistive Device?: No IF YES, STOP HERE Heart Failure (Qualifier) Patient has current or prior documentation of LVEF less than or equal to 40%, or mod/servere depressed LVSF?: No IF NO, STOP HERE
[2024-07-10] MEDS: AMOXICILLIN/CLAVULANATE K 875-125 MG TAB 1 TABLET PO (11:20)
[2024-07-10] MEDS: AZITHROMYCIN 250 MG TABLET 500 MG PO (11:20)
== END 2024-07-10 12:08 | DRG 720 ==
LOC: ANHED 11:17 → ANH2MED 12:35
PROVIDERS: Student in an Organized Health Care Education/Training Program; Admitting Provider Internal Medicine; Emergency Provider Physician Assistant; PCP Internal Medicine; Visit Provider Student in an Organized Health Care Education/Training Program
DX: A41.9 Sepsis, unspecified organism (principal); J96.01 Acute respiratory failure with hypoxia; J18.9 Pneumonia, unspecified organism; J43.9 Emphysema, unspecified; E51.2 Wernicke's encephalopathy; F03.90 Unspecified dementia, unspecified severity, without behavioral disturbance, psychotic disturbance, mood disturbance, and anxiety; F17.210 Nicotine dependence, cigarettes, uncomplicated; F41.9 Anxiety disorder, unspecified; K21.9 Gastro-esophageal reflux disease without esophagitis; Z20.822 Contact with and (suspected) exposure to COVID-19; Z90.49 Acquired absence of other specified parts of digestive tract
CPT/HCPCS: 36415; 71275; 74177; 80048; 80053; 81001; 83605; 83690; 84145; 84484; 85025; 85027; 85610; 85730; 87040; 87070; 87086; 87205; 87637; 87641; 93005; 94640; 96361; 96365; 96367; 97161; 99285; A9270; G0378; G0379; J0456; J0696; J2405; J7030; J7512; Q9967